=== PATIENT | female | born 1955 | race Caucasian/White ===

== ENCOUNTER → 2016-05-11 | Outpatient (CLI) | payer MEDICARE, OTHER ==
--- NOTE | 2016-05-11 12:28 | US ---
EXAMINATION TYPE: US axilla extremity RT DATE OF EXAM: 05/11/2016 12:03 PM COMPARISON: NONE CLINICAL HISTORY: R59.1 Lymphadenopathy,. Rt lump for about a week pt also had mammogram today IMPRESSION: rt axilla palpable vascular 1.9 x 2.1 x 1.6 cm lymph node, smaller node superior to palp able are 0.9 x 0.6 x 1.0 cm IMPRESSION: Right axillary adenopathy.
--- NOTE | 2016-05-15 09:13 | MM ---
Reason for exam: screening (asymptomatic). Last mammogram was performed 1 year and 2 months ago. History: Patient is postmenopausal. Benign excisional biopsy of the left breast, 2006. Physical Findings: A clinical breast exam by your physician is recommended on an annual basis and results should be correlated with mammographic findings. MG 3D Screening Mammo W/Cad Bilateral CC and MLO view(s) were taken. Prior study comparison: March 18, 2015, mammogram, performed at [facility]. The breast tissue is heterogeneously dense. This may lower the sensitivity of mammography. Focal asymmetry 8 o'clock right breast middle depth appears more defined. This may represent summation shadow but warrants further evaluation. ASSESSMENT: Incomplete: need additional imaging evaluation, BI-RAD 0 RECOMMENDATION: Special view mammogram of the right breast. If lesion persists on supplemental views, image directed ultrasound is recommended. [facility] will attempt to contact patient to return for supplemental views and ultrasound if indicated.
== END | disposition home or self-care (01) ==
LOC: RADMAMWWP 11:22
PROVIDERS: ATTEND Surgery
DX: Z12.31 Encounter for screening mammogram for malignant neoplasm of breast (principal); R59.0 Localized enlarged lymph nodes
CPT/HCPCS: 77063; 76882; G0202

== ENCOUNTER → 2016-05-18 | Outpatient (CLI) | payer MEDICARE, OTHER ==
--- NOTE | 2016-05-19 08:47 | MM ---
Reason for exam: additional evaluation requested from abnormal screening. Last mammogram was performed less than 1 month ago. History: Patient is postmenopausal. Benign excisional biopsy of the left breast, 2006. Physical Findings: Nurse Summary: 2cm lump right axilla, round, movable (nurse mm). MG 3D Work Up W/Cad RT Spot compression CC, spot compression MLO, and LM view(s) were taken of the right breast. Prior study comparison: May 11, 2016, bilateral MG 3d screening mammo w/cad. March 18, 2015, mammogram, performed at [facility]. The breast tissue is heterogeneously dense. This may lower the sensitivity of mammography. The questioned focal asymmetry does not persist on the spot MLO or true lateral view. While a density persists on the CC view, no underlying mass or architectural distortion seen on tomosynthesis images. Given the axillary adenopathy ultrasound is recommended. These results were verbally communicated with the patient and result sheet given to the patient on 05/18/16. ASSESSMENT: Incomplete: need additional imaging evaluation, BI-RAD 0 RECOMMENDATION: Ultrasound of the right breast. (6-12:00)
--- NOTE | 2016-05-19 08:50 | USB ---
Reason for exam: additional evaluation requested from abnormal screening. History: Patient is postmenopausal. Benign excisional biopsy of the left breast, 2006. US Breast Workup Limited RT Right breast ultrasound demonstrates ductal ectasia at the nipple and a 0.4 x 0.3 x 0.3cm lesion too small to characterize at 8 o'clock. However, because of the patient's enlarged axillary lymph node scheduled for surgical excision, core needle biopsy can be performed. These results were verbally communicated with the patient and result sheet given to the patient on 05/18/16. ASSESSMENT: Suspicious, BI-RAD 4 RECOMMENDATION: Ultrasound core biopsy of the right breast. (small 8:00 lesion) Called with mammographic findings and has scheduled an appointment for the patient for 05/23/16 at 1:[address] Eric. PRELIMINARY REPORT CALLED AND FAXED TO DR. ERIC ON 05/19/16 AT 300/TMP.
== END | disposition home or self-care (01) ==
LOC: RADMAMWWP 14:41
PROVIDERS: ATTEND Surgery
DX: R92.8 Other abnormal and inconclusive findings on diagnostic imaging of breast (principal)
CPT/HCPCS: 76642; G0206; G0279

== ENCOUNTER → 2016-06-06 | Day surgery (SDC) | payer MEDICARE, OTHER ==
[~2016-06-06] MED LIST: BACITRACIN OINT 1 EACH PACKET TOPICAL ONE; LIDOCAINE 1% INJ 10MG/ML (20 ML MDV) ONE; SODIUM BICARB 4% 5 ML VIAL (0.48 MEQ/ML) ONE
--- NOTE | 2016-06-06 12:53 | USB ---
EXAMINATION TYPE: US biopsy breast VAD RT, MG diagnostic mammo RT wo CAD DATE OF EXAM: 06/06/2016 12:33 PM CLINICAL HISTORY: R92.8 ABN MAMMO. TECHNIQUE: Ultrasound guided core biopsy of right 8:00 breast. COMPARISON: NONE FINDINGS: The procedure of ultrasound guided core biopsy was explained to the patient. Benefits, alternatives, and risks were discussed. An informed consent was then obtained. The patient was placed in supine positioning for imaging and for the procedure. The overlying skin was prepped and draped in usual sterile fashion. Lidocaine buffered with bicarbonate was used as anesthetic into the skin and subcutaneous tissue up to area of concern in the right 8:00 breast. A barbie was made with surgical scalpel. Under ultrasound guidance, a 12-gauge vacuum assisted biopsy gun device was used to obtain 3 core samples. Following this, a biopsy clip was left in lesion. Verification mammogram demonstrates appropriate deployment. The patient tolerated the procedure well without any immediate complication. The patient was kept in the radiology department for short stay after the procedure and then discharged home in stable condition. IMPRESSION: Successful, uncomplicated ultrasound guided core biopsy of area of concern in the right 8:00 breast, full pathology results to follow. Pathology Results: Benign BREAST, RIGHT, CORE BIOPSY: FIBROCYSTIC CHANGES INCLUDING FIBROSIS, CYSTS AND APOCRINE METAPLASIA. Recommendation Follow up ultrasound of the right breast in 6 months. CON
== END | disposition home or self-care (01) ==
LOC: RADUSWWP 11:34
PROVIDERS: ATTEND Surgery
DX: N60.31 Fibrosclerosis of right breast (principal); N60.01 Solitary cyst of right breast; N60.81 Other benign mammary dysplasias of right breast
CPT/HCPCS: 19083; 88305; G0206; A4648; J2001

== ENCOUNTER 2016-06-16 12:17 | Day surgery (SDC) | payer MEDICARE, OTHER ==
[2016-06-14 15:59] VITALS: BMI 19.2
[~2016-06-16 12:17] MED LIST changes: -BACITRACIN OINT 1 EACH PACKET TOPICAL ONE; +DEXAMETHASONE SOD PHOSPHATE 10 MG/ML 1 ML VIAL IV ONE; +HEPARIN SODIUM,PORCINE 5,000 UNIT/ML 1 ML VIAL SQ ONE; +HYDROmorphone 1 MG/ML 1 ML SYRINGE IVP PRN; +LACTATED RINGERS 1,000 ML IV SCH; -LIDOCAINE 1% INJ 10MG/ML (20 ML MDV) ONE; +MIDAZOLAM 2 MG/2 ML VIAL IV PRN; +ONDANSETRON 4 MG/2 ML VIAL IVP ONE; +Pre Op ABX Message 1 EACH MISC MISCELLANE ONE; +SCOPOLAMINE 1.5MG/72HR PATCH TRANSDERM ONE; -SODIUM BICARB 4% 5 ML VIAL (0.48 MEQ/ML) ONE
[2016-06-16] MEDS ORDERED: LIDOCAINE 1% 20 ML VIAL (10MG/ML) FOR IV START INTRADERMA ONE (12:39)
[2016-06-16] MEDS ORDERED: ATENOLOL 25 MG TAB PO STA (12:43)
--- NOTE | 2016-06-16 13:27 | P.GSHP ---
History of Present Illness H&P Date: 06/16/16 Chief Complaint: Right axillary lymphadenopathy This is a 60-year-old female who's had a right x-ray mass. Her recent ultrasound shows evidence of right I's lymphadenopathy. Patient presents today for excision of right axillary lymph node. - Constitutional Constitutional: Reports as per HPI Past Medical History Past Medical History: Coronary Artery Disease (CAD), COPD, Hyperlipidemia, Myocardial Infarction ([place]), Pneumonia Additional Past Medical History / Comment(s): aneurysm, Last Myocardial Infarction Date:: 2004 History of Any Multi-Drug Resistant Organisms: None Reported Past Surgical History: Breast Surgery, Heart Catheterization With Stent Additional Past Surgical History / Comment(s): "fluid drained from left breast" , surgery rt kidney to remove kidney stone , geovanni shoulder roator cuff Past Anesthesia/Blood Transfusion Reactions: No Reported Reaction Date of Last Stent Placement:: 2004 Past Psychological History: No Psychological Hx Reported Smoking Status: Current every day smoker Past Alcohol Use History: None Reported Additional Past Alcohol Use History / Comment(s): smokes < 1 PPD for past 50 yrs Past Drug Use History: None Reported - Past Family History Sister(s) Family Medical History: Cancer Father Family Medical History: Cancer Mother Family Medical History: Cancer Medications and Allergies Home Medications Medication Instructions Recorded Confirmed Type Albuterol Nebulized [Ventolin 2.5 mg INHALATION DIRECTED PRN 10/21/13 History Nebulized] Atenolol [Tenormin] 25 mg PO DAILY 10/21/13 06/16/16 History Tiotropium Rose [Spiriva] 1 puff IH DAILY 10/21/13 06/14/16 History Albuterol Inhaler [Ventolin Hfa 1 - 2 puff INHALATION DIRECTED 06/14/1606/16 History Inhaler] PRN Aspirin 325 mg PO DAILY 06/14/16 06/14/16 History Atorvastatin [Lipitor] 40 mg PO DAILY 06/14/16 06/16/16 History Budesonide-Formot 160-4.5 Mcg 1 puff INHALATION BID 06/14/16 06/14/16 History [Symbicort 160-4.5 Mcg Inhaler] Ergocalciferol [Vitamin D2] 50,000 unit PO Q7D 06/14/16 06/16/16 History Pantoprazole Sodium 20 mg PO DAILY 06/14/16 06/14/16 History Pregabalin [Lyrica] 75 mg PO DAILY 06/14/16 06/14/16 History Allergies Allergy/AdvReac Type Severity Reaction Status Date / Time No Known Allergies Allergy Verified 06/16/16 12:34 Surgical - Exam Vital Signs Temp Pulse Resp BP Pulse Ox 977.6 F H 75 16 138/69 95 06/16/16 12:37 06/16/16 12:37 06/16/16 12:37 06/16/16 12:37 06/16/16 12:37 - General well developed, no distress - Eyes PERRL - ENT normal pinna - Neck no masses - Respiratory normal expansion - Cardiovascular Rhythm: regular - Abdomen Abdomen: soft, non tender 3 cm mass in right examined. Assessment and Plan Plan: Right axillary lymphadenopathy. We'll perform excisional biopsy.
[2016-06-16] MEDS ORDERED: BUPIVACAIN-EPI 0.25%-1:200,000 30 ML VIAL SQ ONE ×2 (13:48)
[2016-06-16] MEDS ORDERED: LIDOCAINE 1% INJ 10MG/ML (20 ML MDV) ONE (13:49)
[2016-06-16] MEDS ORDERED: MIDAZOLAM 2 MG/2 ML VIAL ONE (13:49)
[2016-06-16] MEDS ORDERED: ePHEDrine 50 MG/ML 1 ML AMP ONE (13:49)
[2016-06-16] MEDS ORDERED: PROPOFOL 10 MG/ML 20 ML VIAL IV ONE (13:49)
--- NOTE | 2016-06-16 14:29 | P.OP ---
Date of Procedure: 06/16/16 Preoperative Diagnosis: Right axillary lymphadenopathy Postoperative Diagnosis: Right axillary lymphadenopathy Procedure(s) Performed: Excision of right axillary lymph node Anesthesia: KELSEY Surgeon: Tyree Eric Estimated Blood Loss (ml): 5 Pathology: other (Right axillary lymph node) Condition: stable Disposition: PACU Description of Procedure: Patient's placed on the operating table in the supine position. She received a general anesthetic. Her right axilla was prepped and draped usual sterile fashion. Mask be palpated through the nasal. A skin incision was made over the mass. And then using blunt and sharp dissection with cautery and the Harmonic scissors the lymph node was exposed. The lymph node was dissected with the Harmonic scissors and sent to pathology. The lymph node measured approximately 4 cm diameter. The wound was inspected for hemostasis. Small bleeding points were coagulated with electrocautery. A LISA drains placed through separate stab incision and brought out through the chest lateral chest wall. The skin was closed interrupted 3-0 Monocryl suture. Dermabond was applied. Patient sent to recovery room stable condition.
[2016-06-16 14:44] VITALS: TEMP 97.2
[2016-06-16 14:48] VITALS: RESP 16
[2016-06-16] MEDS ORDERED: LACTATED RINGERS 1,000 ML IV ONE (15:01)
[2016-06-16 15:49] VITALS: BP 111/61; PULSE 67
== END 2016-06-16 16:19 | disposition home or self-care (01) ==
LOC: OR 12:17
PROVIDERS: ATTEND Surgery
DX: C77.3 Secondary and unspecified malignant neoplasm of axilla and upper limb lymph nodes (principal); C80.1 Malignant (primary) neoplasm, unspecified; I25.10 Atherosclerotic heart disease of native coronary artery without angina pectoris; J45.909 Unspecified asthma, uncomplicated; J44.9 Chronic obstructive pulmonary disease, unspecified; I71.2 Thoracic aortic aneurysm, without rupture; E78.5 Hyperlipidemia, unspecified; I25.2 Old myocardial infarction; F17.200 Nicotine dependence, unspecified, uncomplicated; Z79.51 Long term (current) use of inhaled steroids; Z79.82 Long term (current) use of aspirin; Z79.899 Other long term (current) drug therapy; Z95.5 Presence of coronary angioplasty implant and graft; Z80.9 Family history of malignant neoplasm, unspecified
CPT/HCPCS: 38500; 88342; 88307; 88341; J2250; J1644; J1100; J2405; J2001; J1170; J2704

== ENCOUNTER → 2016-06-26 | Outpatient (CLI) | payer MEDICARE, OTHER ==
--- NOTE | 2016-06-26 14:09 | CT ---
EXAMINATION TYPE: CT ChestAbdPelvis w con DATE OF EXAM: 06/26/2016 1:57 PM COMPARISON: NONE HISTORY: lymphoma CT DLP: 707.5 mGycm CONTRAST: CT scan of the chest, abdomen and pelvis is performed with Oral Contrast and with IV Contrast, patien t injected with 100 mL of Omnipaque 300. CT Chest: LUNGS: The lungs are clear and free of infiltrate or atelectasis. No pulmonary nodule or mass is det ected. No pleural effusion or CT evidence of interstitial lung disease. MEDIASTINUM: Thoracic aorta is of normal caliber. The heart is not enlarged. No evidence for media stinal mass or adenopathy. Several calcified mediastinal lymph nodes. HILAR STRUCTURES: No evidence for mass. No hilar adenopathy is appreciated. OTHER: There is massive partially imaged right axillary adenopathy measuring at least 10.7 cm in cran iocaudal dimension and 7.1 cm AP dimension. No axillary or supraclavicular lymph nodes greater than [address] ABDOMEN AND PELVIS FINDINGS: LIVER/GB: No calcified gallstones. Several scattered hepatic cystic lesions measuring up to 1.6 cm and 1.8 cm. Biliary tree is of normal caliber. PANCREAS: No inflammation. No distinct mass. SPLEEN: No splenic enlargement. No lesion seen. ADRENALS: 1 cm right adrenal adenoma. KIDNEYS/BLADDER: No hydronephrosis. No nephrolithiasis. Renal cystic changes upper pole right kidne y measuring up to 3.3 cm. Focal parenchymal calcification and cortical thinning suggesting remote ins ult. Additional nonobstructing right-sided nephrolithiasis. Left renal cyst midpole measures 1.6 cm g reatest dimension. No solid renal lesions appreciated at this time. BOWEL: Normal appendix. Normal b owel caliber. No inflammation. Left renal vein is retroaortic in position. GENITAL ORGANS: Soft tissue mass adjacent to the uterus on the right measures 3.6 x 2.5 cm and may re flect subserosal leiomyoma versus ovarian lesion although a normal right ovary is present. Consider u ltrasound correlation. LYMPH NODES: No greater than 1cm abdominal or pelvic lymph nodes are appreciated. AORTA: No significant abnormality. OSSEOUS STRUCTURES: No significant abnormality is seen. OTHER: No significant additional abnormality is seen. IMPRESSION: 1. Partially imaged right axillary adenopathy. 2. No additional adenopathy appreciated. 3. Renal cystic changes and focal areas of right renal parenchymal insult. Nonobstructing right-sided nephrolithiasis. 4. Hepatic cysts. 5. Small right adrenal adenoma measuring 1 cm. #6 subserosal leiomyoma versus adnexal lesion. Conside r ultrasound correlation.
== END | disposition home or self-care (01) ==
LOC: RADCTMAIN 13:27
PROVIDERS: ATTEND Surgery
DX: R59.9 Enlarged lymph nodes, unspecified (principal); N20.0 Calculus of kidney; K76.89 Other specified diseases of liver; D35.01 Benign neoplasm of right adrenal gland
CPT/HCPCS: 71260; 74177; Q9967

== ENCOUNTER → 2016-07-11 | Outpatient (CLI) | payer MEDICARE, OTHER ==
--- NOTE | 2016-07-12 11:38 | ECHOF ---
Referral Reason:C50.919 Z01.810 Breast CA, Pre Chemo MEASUREMENTS -------- HEIGHT: 156.2 cm WEIGHT: 64.9 kg BP: 120/80 RVIDd: 3.3 cm (< 3.3) IVSd: 1.1 cm (0.6 - 1.1) LVIDd: 4.6 cm (3.9 - 5.3) LVPWd: 1.0 cm (0.6 - 1.1) IVSs: 1.5 cm LVIDs: 3.8 cm LVPWs: 1.8 cm LA Diam: 2.9 cm (2.7 - 3.8) LAESV Index (A-L): 18.51 ml/m Ao Diam: 3.4 cm (2.0 - 3.7) AV Cusp: 2.4 cm (1.5 - 2.6) MV EXCURSION: 17.701 mm (> 18.000) MV EF SLOPE: 45 mm/s (70 - 150) EPSS: 0.9 cm MV E Rl: 0.73 m/s MV DecT: 228 ms MV A Rl: 0.89 m/s MV E/A Ratio: 0.82 RAP: 5.00 mmHg RVSP: 40.01 mmHg FINDINGS -------- Sinus rhythm. This was a technically adequate study. The left ventricular size is normal. There is borderline concentric left ventricular hypertrophy. There is mild global hypokinesis of LV . Overall left ventricular systolic function is mildly impaired with, an EF between 45 - 50 %. The right ventricle is mildly enlarged. Normal LA size by volume 22+/-6 ml/m2. The right atrium is normal in size. 1.5mg of Definity was utilized for enhancement of images The aortic valve is trileaflet and appears structurally normal. The mitral valve is normal. The tricuspid valve appears structurally normal. Mild tricuspid regurgitation present. There is mild pulmonary hypertension. The right ventricular systolic pressure, as measured by Doppler, is 40.01mmHg. The pulmonic valve was not well visualized. There is no pulmonic regurgitation present. The aortic root size is normal. Normal inferior vena cava with normal inspiratory collapse consistent with estimated right atrial pressure of 5 mmHg. There is no pericardial effusion. CONCLUSIONS -------- 1. Sinus rhythm. 2. The mitral valve is normal. 3. Mild tricuspid regurgitation present. 4. There is mild pulmonary hypertension. 5. The right ventricular systolic pressure, as measured by Doppler, is 40.01mmHg. 6. The pulmonic valve was not well visualized. 7. There is no pulmonic regurgitation present. 8. The aortic root size is normal. 9. Normal inferior vena cava with normal inspiratory collapse consistent with estimated right atrial pressure of 5 mmHg. 10. There is no pericardial effusion. 11. This was a technically adequate study. 12. There is borderline concentric left ventricular hypertrophy. 13. There is mild global hypokinesis of LV . 14. Overall left ventricular systolic function is mildly impaired with, an EF between 45 - 50 %. 15. The right ventricle is mildly enlarged. 16. Normal LA size by volume 22+/-6 ml/m2. 17. 1.5mg of Definity was utilized for enhancement of images 18. The aortic valve is trileaflet and appears structurally normal. MERCHANDISE STOCKER: Mariah Molina RDCS
== END | disposition home or self-care (01) ==
LOC: RADECHMAIN 12:52
PROVIDERS: ATTEND Internal Medicine Hematology & Oncology
DX: Z01.818 Encounter for other preprocedural examination (principal); C50.919 Malignant neoplasm of unspecified site of unspecified female breast; I07.1 Rheumatic tricuspid insufficiency; I27.2 Other secondary pulmonary hypertension; I51.7 Cardiomegaly
CPT/HCPCS: C8929; Q9957; 93306

== ENCOUNTER → 2016-07-12 | Outpatient (CLI) | payer MEDICARE, OTHER ==
--- NOTE | 2016-07-14 09:36 | BMR ---
EXAMINATION TYPE: MR breast BILAT wo/w con DATE OF EXAM: 07/12/2016 1:36 PM COMPARISON: CT chest abdomen pelvis 26 June 2016, mammogram May 2016, 2016 diagnostic ultrasound and mammogram HISTORY: Breast CA, lymphoma TECHNIQUE: A series of fat and water weighted images in the long and short axis views of both breasts are obtained in conjunction with dynamic contrast MRI with subtraction technique. The patient was i njected with 15 mL intravenous MultiHance gadolinium contrast. Three-dimensional and additional pos tprocessing imaging is created on independent workstation and reviewed during official interpretation of this study. FINDINGS: Scattered fibroglandular elements are present within both breasts. The right axilla shows abnormal appearance compatible with postop change, underlying soft tissue mass possibly tax representative of patient's known lymphoma. No additional adenopathy is evident. Benign-harshil earing lymph nodes are present additionally within both axilla. No suspicious mass like enhancement is present within either breast. IMPRESSION: Abnormal signal within the right axilla, findings compatible with postbiopsy change. No suspicious ma ss like enhancement within the breasts bilaterally. right breast: BI-RADS 6, known cancer Left breast: BI-RADS 1 negative
== END | disposition home or self-care (01) ==
LOC: RADMRIMAIN 11:57
PROVIDERS: ATTEND Internal Medicine Hematology & Oncology
DX: C50.919 Malignant neoplasm of unspecified site of unspecified female breast (principal); R93.8 Abnormal findings on diagnostic imaging of other specified body structures
CPT/HCPCS: 0159T; C8908; A9577; 77059

== ENCOUNTER 2016-07-14 06:00 | Day surgery (SDC) | payer MEDICARE, OTHER ==
[2016-07-12 14:47] VITALS: BMI 26.2
[~2016-07-14 06:00] MED LIST changes: -Pre Op ABX Message 1 EACH MISC MISCELLANE ONE; +ceFAZolin 2 GM in SODIUM CHLORIDE 0.9% 100 ML IVPB ONE
[2016-07-14 06:21] VITALS: RESP 16; TEMP 98
[2016-07-14] MEDS ORDERED: LIDOCAINE 1% 20 ML VIAL (10MG/ML) FOR IV START INTRADERMA ONE (06:34)
[2016-07-14] MEDS ORDERED: HEPARIN SODIUM,PORCINE 100 UNIT/ML 5 ML VIAL IV ONE (07:20)
[2016-07-14] MEDS ORDERED: BUPIVACAIN-EPI 0.25%-1:200,000 30 ML VIAL SQ ONE (07:21)
[2016-07-14] MEDS ORDERED: IOHEXOL 180 MG/ML 1 ML ML MISCELLANE ONE (07:21)
--- NOTE | 2016-07-14 07:50 | P.GSHP ---
History of Present Illness H&P Date: 07/14/16 Chief Complaint: Right This is a 61-year-old female who presents today for insertion of Port-A-Cath. 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 - Constitutional Constitutional: Reports as per HPI Past Medical History Past Medical History: Coronary Artery Disease (CAD), COPD, Hyperlipidemia, Myocardial Infarction ([place]), Pneumonia Additional Past Medical History / Comment(s): aneurysm, R axillary lymphadenopathy. Last Myocardial Infarction Date:: 2004 History of Any Multi-Drug Resistant Organisms: None Reported Past Surgical History: Breast Surgery, Heart Catheterization With Stent Additional Past Surgical History / Comment(s): "fluid drained from left breast" , surgery rt kidney to remove kidney stone , geovanni shoulder roator cuff, surgery beginning of june for lymph node L side. Past Anesthesia/Blood Transfusion Reactions: No Reported Reaction Date of Last Stent Placement:: 2004 Past Psychological History: No Psychological Hx Reported Smoking Status: Current every day smoker Past Alcohol Use History: None Reported Additional Past Alcohol Use History / Comment(s): smokes < 1 PPD for past 50 yrs Past Drug Use History: None Reported - Past Family History Sister(s) Family Medical History: Cancer Father Family Medical History: Cancer Mother Family Medical History: Cancer Medications and Allergies Home Medications Medication Instructions Recorded Confirmed Type Albuterol Nebulized [Ventolin 2.5 mg INHALATION DIRECTED PRN 10/21/13 History Nebulized] Atenolol [Tenormin] 25 mg PO DAILY 10/21/13 07/14/16 History Tiotropium Franklin [Spiriva] 1 puff IH DAILY 10/21/13 07/14/16 History Albuterol Inhaler [Ventolin Hfa 1 - 2 puff INHALATION DIRECTED 06/14/1607/14 History Inhaler] PRN Aspirin 325 mg PO DAILY 06/14/16 07/14/16 History Atorvastatin [Lipitor] 40 mg PO DAILY 06/14/16 07/14/16 History Budesonide-Formot 160-4.5 Mcg 1 puff INHALATION BID 06/14/16 07/14/16 History [Symbicort 160-4.5 Mcg Inhaler] Ergocalciferol [Vitamin D2] 50,000 unit PO Q7D 06/14/16 07/14/16 History Pantoprazole Sodium 20 mg PO DAILY 06/14/16 07/14/16 History Pregabalin [Lyrica] 75 mg PO DAILY 06/14/16 07/14/16 History Allergies Allergy/AdvReac Type Severity Reaction Status Date / Time No Known Allergies Allergy Verified 07/14/16 06:21 Surgical - Exam Vital Signs Temp Pulse Resp BP Pulse Ox 98.0 F 68 16 122/69 94 L 07/14/16 06:20 07/14/16 06:20 07/14/16 06:20 07/14/16 06:20 07/14/16 06:20 - General well developed, no distress - Eyes PERRL - ENT normal pinna - Neck no masses - Respiratory normal expansion - Cardiovascular Rhythm: regular - Abdomen Abdomen: soft, non tender Assessment and Plan Plan: Right axillary squamous cell carcinoma. We'll perform Port-A-Cath insertion.
[2016-07-14] MEDS ORDERED: LIDOCAINE 1% INJ 10MG/ML (20 ML MDV) ONE (07:53)
[2016-07-14] MEDS ORDERED: MIDAZOLAM 2 MG/2 ML VIAL ONE (07:53)
[2016-07-14] MEDS ORDERED: GLYCOPYRROLATE 0.2 MG/ML 2 ML VIAL ONE (07:53)
[2016-07-14] MEDS ORDERED: fentaNYL (PF) 50 MCG/ML 2 ML AMP ONE (07:53)
[2016-07-14] MEDS ORDERED: PROPOFOL 10 MG/ML 20 ML VIAL IV ONE (07:53)
[2016-07-14] MEDS ORDERED: KETAMINE 10 MG/ML 20 ML VIAL ONE (07:53)
--- NOTE | 2016-07-14 08:28 | P.OP ---
Date of Procedure: 07/14/16 Preoperative Diagnosis: Metastatic scope was so right axilla Postoperative Diagnosis: Same Procedure(s) Performed: Left subclavian Port-A-Cath insertion Anesthesia: KELSEY Surgeon: Tyree Eric Estimated Blood Loss (ml): 5 Pathology: none sent Condition: stable Disposition: PACU Description of Procedure: PROCEDURE: The patient was placed on the operating table in the supine position. She received MAC anesthetic. The left chest was prepped and draped in the usual sterile fashion. The skin underneath the right clavicle was anesthetized with 1% Xylocaine and using Seldinger technique, the right subclavian vein was cannulized. The wire was placed through the needle and positioned under fluoroscopy. Next, the needle was removed and the port site was anesthetized with 1% Xylocaine. Skin was incised with #15 blade and port pocket was made using blunt and sharp dissection. Following this the catheter was attached to the sport and the port was flushed. The port was positioned into the pocket site and was secured with 3-0 Vicryl suture. The catheter was then brought out through the wire site and then the dilator sheath was placed over the wire and the dilator and the wire were removed. The catheter was placed through the sheath and the sheath was removed. The port was flushed with hep-lock solution. Skin was closed with interrupted 3-0 Vicryl sutures. Steri-Strips were applied. The patient tolerated the procedure well. The patient was sent to recovery room for chest x-ray after the procedure.
[2016-07-14 09:24] VITALS: BP 105/71; PULSE 82
--- NOTE | 2016-07-14 09:47 | XR ---
EXAMINATION TYPE: XR chest 1V DATE OF EXAM: 07/14/2016 9:41 AM HISTORY: Line placement. REFERENCE: Previous study dated 03/21/2012. FINDINGS: The lungs are clear. The heart is minimally prominent. Pleural spaces are clear. IMPRESSION: MILD CARDIOMEGALY.
--- NOTE | 2016-07-14 10:03 | FL ---
FLUOROSCOPY 7 seconds of fluoroscopy time were utilized during Port-A-Cath insertion. 1 images document the proce dure.
== END 2016-07-14 10:00 | disposition home or self-care (01) ==
LOC: OR 06:00
PROVIDERS: ATTEND Surgery
DX: Z45.2 Encounter for adjustment and management of vascular access device (principal); C50.611 Malignant neoplasm of axillary tail of right female breast; F17.200 Nicotine dependence, unspecified, uncomplicated; I25.10 Atherosclerotic heart disease of native coronary artery without angina pectoris; Z95.5 Presence of coronary angioplasty implant and graft; I10 Essential (primary) hypertension; E78.5 Hyperlipidemia, unspecified; Z80.9 Family history of malignant neoplasm, unspecified; I25.2 Old myocardial infarction; Z79.82 Long term (current) use of aspirin; Z79.51 Long term (current) use of inhaled steroids; Z79.899 Other long term (current) drug therapy
CPT/HCPCS: 36571; 77001; 71010; C1788; J2250; J1644; J1642; J1100; Q9965; J0690; J2405; J2001; J3010; J2704

== ENCOUNTER → 2016-09-06 | Outpatient (CLI) | payer MEDICARE, OTHER ==
--- NOTE | 2016-09-12 14:18 | ECHOF ---
Referral Reason:C50.611 breast ca Z01.818 herceptin MEASUREMENTS -------- HEIGHT: 152.4 cm WEIGHT: 66.2 kg BP: 119/86 RVIDd: 2.4 cm (< 3.3) IVSd: 1.1 cm (0.6 - 1.1) LVIDd: 4.7 cm (3.9 - 5.3) LVPWd: 1.3 cm (0.6 - 1.1) IVSs: 1.5 cm LVIDs: 3.8 cm LVPWs: 1.1 cm LAESV Index (A-L): 22.83 ml/m Ao Diam: 3.3 cm (2.0 - 3.7) AV Cusp: 1.8 cm (1.5 - 2.6) LA Diam: 3.2 cm (2.7 - 3.8) MV EXCURSION: 19.436 mm (> 18.000) MV EF SLOPE: 74 mm/s (70 - 150) EPSS: 0.4 cm MV E Rl: 0.48 m/s MV DecT: 293 ms MV A Rl: 0.80 m/s MV E/A Ratio: 0.60 RAP: 5.00 mmHg RVSP: 34.14 mmHg FINDINGS -------- Sinus rhythm. This was a technically adequate study. There is borderline concentric left ventricular hypertrophy. Overall left ventricular systolic function is mild-moderately impaired with, an EF between 40 - 45 %. The right ventricle is normal in size. The right atrial size is normal. Mild mitral annular calcification present. Mild mitral regurgitation is present. Mild tricuspid regurgitation present. There is no evidence of pulmonary hypertension. The right ventricular systolic pressure, as measured by Doppler, is 34.14mmHg. There is no pulmonic regurgitation present. The aortic root size is normal. There is no pericardial effusion. CONCLUSIONS -------- 1. There is borderline concentric left ventricular hypertrophy. 2. Overall left ventricular systolic function is mild-moderately impaired with, an EF between 40 - 45 %. 3. Mild mitral annular calcification present. 4. Mild mitral regurgitation is present. 5. Mild tricuspid regurgitation present. 6. There is no evidence of pulmonary hypertension. 7. The right ventricular systolic pressure, as measured by Doppler, is 34.14mmHg. 8. There is no pericardial effusion. INCISING MACHINE OPERATOR: Karo Martinez RDCS
== END | disposition home or self-care (01) ==
LOC: RADECHMAIN 07:56
PROVIDERS: ATTEND Internal Medicine Hematology & Oncology
DX: Z01.810 Encounter for preprocedural cardiovascular examination (principal); I08.1 Rheumatic disorders of both mitral and tricuspid valves; C50.611 Malignant neoplasm of axillary tail of right female breast
CPT/HCPCS: 93306

== ENCOUNTER → 2016-11-17 | Outpatient (CLI) | payer MEDICARE, OTHER ==
--- NOTE | 2016-11-17 17:37 | ECHOF ---
Referral Reason:Z01.818pre op exam C50.61 breast ca MEASUREMENTS -------- HEIGHT: 309.9 cm WEIGHT: 22.7 kg BP: 117/84 RVIDd: 3.3 cm (< 3.3) IVSd: 1.0 cm (0.6 - 1.1) LVIDd: 4.9 cm (3.9 - 5.3) LVPWd: 1.0 cm (0.6 - 1.1) IVSs: 1.3 cm LVIDs: 3.7 cm LVPWs: 1.1 cm LAESV Index (A-L): 21.13 ml/m Ao Diam: 3.6 cm (2.0 - 3.7) AV Cusp: 1.8 cm (1.5 - 2.6) LA Diam: 3.4 cm (2.7 - 3.8) MV EXCURSION: 17.007 mm (> 18.000) MV EF SLOPE: 104 mm/s (70 - 150) EPSS: 1.0 cm MV E Rl: 0.44 m/s MV DecT: 199 ms MV A Rl: 0.69 m/s MV E/A Ratio: 0.64 RAP: 5.00 mmHg RVSP: 40.39 mmHg FINDINGS -------- Undetermined rhythm. This was a technically adequate study. There is mild concentric left ventricular hypertrophy. Overall left ventricular systolic function is mild-moderately impaired with, an EF between 40 - 45 %. The right ventricle is normal in size. The right atrial size is normal. There is mild aortic valve sclerosis. There is no evidence of aortic regurgitation. Mild mitral annular calcification present. Mild mitral regurgitation is present. Mild tricuspid regurgitation present. There is mild pulmonary hypertension. The right ventricular systolic pressure, as measured by Doppler, is 40.39mmHg. Trace/mild (physiologic) pulmonic regurgitation. The aortic root size is normal. There is no pericardial effusion. CONCLUSIONS -------- 1. There is mild concentric left ventricular hypertrophy. 2. The aortic root size is normal. 3. There is no pericardial effusion. 4. Overall left ventricular systolic function is mild-moderately impaired with, an EF between 40 - 45 %. 5. There is mild aortic valve sclerosis. 6. Mild mitral annular calcification present. 7. Mild mitral regurgitation is present. 8. Mild tricuspid regurgitation present. 9. There is mild pulmonary hypertension. 10. The right ventricular systolic pressure, as measured by Doppler, is 40.39mmHg. 11. Trace/mild (physiologic) pulmonic regurgitation. GO GO DANCER: Karo Martinez RDCS
== END | disposition home or self-care (01) ==
LOC: RADECHMAIN 07:53
PROVIDERS: ATTEND Internal Medicine Hematology & Oncology
DX: C50.611 Malignant neoplasm of axillary tail of right female breast (principal); I08.3 Combined rheumatic disorders of mitral, aortic and tricuspid valves
CPT/HCPCS: 93306

== ENCOUNTER → 2016-11-23 | Outpatient (CLI) | payer MEDICARE, OTHER ==
[2016-11-23 16:19] LABS: Anisocytosis Slight; CH 29.1; HCT 41.9 % (34.0-46.0); HDW 2.66; HGB 13.7 gm/dL (11.4-16.0); Hypochromasia Slight; MCH 30.9 pg (25.0-35.0); MCHC 32.6 g/dL (31.0-37.0); MCV 94.7 fL (80.0-100.0); Macrocytosis Slight; RBC 4.43 m/uL (3.80-5.40); RDW 18.8 % (11.5-15.5); WBC 9.3 k/uL (3.8-10.6)
[2016-11-23 16:24] LABS: Anion Gap 9 mmol/L; Blood Urea Nitrogen 11 mg/dL (7-17); Carbon Dioxide 27 mmol/L (22-30); Chloride 106 mmol/L (98-107); Non-African American GFR(MDRD) >60 (>60 ml/min/1.73 sqM); Potassium 4.2 mmol/L (3.5-5.1); Sodium 142 mmol/L (137-145)
== END | disposition home or self-care (01) ==
LOC: LABPAT 16:02
PROVIDERS: ATTEND Internal Medicine Interventional Cardiology
DX: Z01.812 Encounter for preprocedural laboratory examination (principal); R94.30 Abnormal result of cardiovascular function study, unspecified
CPT/HCPCS: 80051; 82565; 84520; 85027

== ENCOUNTER 2016-11-24 09:57 | Day surgery (SDC) | payer MEDICARE, OTHER ==
[~2016-11-24 09:57] MED LIST changes: +ALPRAZolam 0.25 MG TAB PO PRN; +ALPRAZolam 0.5 MG TAB PO PRN; +ASPIRIN 325 MG TAB PO STA; +ATORVASTATIN 80 MG TAB PO STA; -DEXAMETHASONE SOD PHOSPHATE 10 MG/ML 1 ML VIAL IV ONE; -HEPARIN SODIUM,PORCINE 5,000 UNIT/ML 1 ML VIAL SQ ONE; -HYDROmorphone 1 MG/ML 1 ML SYRINGE IVP PRN; -LACTATED RINGERS 1,000 ML IV SCH; -MIDAZOLAM 2 MG/2 ML VIAL IV PRN; +NITROGLYCERIN SL TABS 0.4 MG TAB SUBLINGUAL PRN; -ONDANSETRON 4 MG/2 ML VIAL IVP ONE; -SCOPOLAMINE 1.5MG/72HR PATCH TRANSDERM ONE; +SODIUM CHLORIDE 0.9% 1,000 ML in EMPTY BAG 1 BAG IV ONE; -ceFAZolin 2 GM in SODIUM CHLORIDE 0.9% 100 ML IVPB ONE
[2016-11-24 10:26] VITALS: TEMP 98.1
[2016-11-24 11:06] LABS: Anion Gap 8 mmol/L; Blood Urea Nitrogen 8 mg/dL (7-17); Calcium 8.8 mg/dL (8.4-10.2); Carbon Dioxide 23 mmol/L (22-30); Chloride 110 mmol/L (98-107); Glucose 83 mg/dL (74-99); Non-African American GFR(MDRD) >60 (>60 ml/min/1.73 sqM); Potassium 4.4 mmol/L (3.5-5.1); Sodium 141 mmol/L (137-145)
[2016-11-24] MEDS ORDERED: IV FLUID CONTINUATION 900 ML IV ONE (11:57)
[2016-11-24] MEDS ORDERED: diphenhydrAMINE 50 MG/ML 1 ML VIAL IVP ONE (12:03)
[2016-11-24] MEDS ORDERED: LIDOCAINE 2% INJ 20 MG/ML SQ ONE (12:04)
[2016-11-24] MEDS: VERAPAMIL SYRINGE (5 MG/10 ML) INTRAARTER ONE ×2 (12:07→12:17)
[2016-11-24] MEDS ORDERED: HEPARIN SODIUM 1,000 UN/ML (10ML VL) IV ONE (12:15)
[2016-11-24] MEDS ORDERED: IOHEXOL 350 MG/ML 100 ML BOTTLE INJ ONE (12:20)
[2016-11-24] MEDS ORDERED: SODIUM CHLORIDE 0.9% 1,000 ML IV SCH (12:45)
[2016-11-24 17:27] VITALS: PULSE 77
--- NOTE | 2016-11-24 18:50 | CC ---
DATE OF PROCEDURE: 11/24/2016 PROCEDURE: Left heart catheterization and coronary angiography. PERFORMED BY: Dr. Marcie Mar CLINICAL INFORMATION: Mrs. Angela Dickerson is a 61-year-old lady with a history of breast cancer, status post chemotherapy, going for a bilateral mastectomy because of aggressive form of cancer. She is now receiving monoclonal antibodies. Because of an abnormal stress test with anterior wall moderate- sized partially reversible defect, I advised coronary angiography prior to elective surgery. Risks, benefits, options and rationale were explained. PROCEDURE NOTE: Under local anesthesia and strict aseptic precautions, a 6 [place]an introducer was placed in the right radial artery. I used a micropuncture needle technique to gain access. Using an Ultimate I catheter, I performed selective coronary angiography of both the left and right coronary arteries. LV gram was not performed, but LV pressures were checked. Patient tolerated the procedure well. The sheath was taken out and a Vasc band was used to secure hemostasis. Saturation in the fingers of the right hand was 93%. Patient tolerated well without complication. She was sent to the room in stable condition. Results were discussed with the patient and family. Moderate conscious sedation was provided for a total duration of 25 minutes. CARDIAC CATHETERIZATION FINDINGS The left ventricular end-diastolic pressure was 14 mmHg and there was no gradient across the aortic valve. CORONARY ANGIOGRAPHY FINDINGS RIGHT CORONARY ARTERY: Large, dominant, disease-free vessel that distally bifurcates into PDA and PLV, both of which are free of significant disease and supply a sizeable amount of myocardium. There is no significant disease in the dominant RCA. LEFT MAIN CORONARY ARTERY: Short patent vessel that is almost aneurysmal but has no significant disease and bifurcates into LAD and circumflex. LEFT ANTERIOR DESCENDING CORONARY ARTERY: This vessel was stented in 2004. At the site of stenting, the vessel is widely patent with remarkably brisk flow. There is a septal branch and a small diagonal branch and LAD is free of significant disease. It runs all the way to the apex, supplying a sizeable amount of myocardium. LEFT POSTERIOR CIRCUMFLEX CORONARY ARTERY: Codominant vessel. Gives off a large obtuse marginal. Has minor irregularities. Gives off a left atrial circumflex branch. There is no significant disease in the codominant circumflex system. LEFT VENTRICULOGRAM: This was not performed. FINAL IMPRESSION: This patient has no significant obstructive disease, and at the site of proximal LAD, which was almost ostial LAD, stenting was performed in 2004. That stented segment is widely patent with brisk flow without any evidence of restenosis. Non-dominant circumflex and dominant RCA are free of significant disease, and filling pressures are acceptable. LV gram was not performed. This patient tolerated the procedure well without complications. Results were discussed with the patient and family, and she was sent to the room in stable condition. CON
[2016-11-24 19:01] VITALS: RESP 20
[2016-11-24 19:06] VITALS: BP 99/55
[2016-11-25] MEDS ORDERED: ASPIRIN 81 MG CHEW PO SCH (09:00)
== END 2016-11-24 19:00 | disposition home or self-care (01) ==
LOC: CATHCVL 09:57
PROVIDERS: ATTEND Internal Medicine Interventional Cardiology
DX: R94.39 Abnormal result of other cardiovascular function study (principal); J44.9 Chronic obstructive pulmonary disease, unspecified; E78.5 Hyperlipidemia, unspecified; I25.10 Atherosclerotic heart disease of native coronary artery without angina pectoris; F17.210 Nicotine dependence, cigarettes, uncomplicated; Z68.27 Body mass index [BMI] 27.0-27.9, adult; E66.3 Overweight; I25.2 Old myocardial infarction; Z95.5 Presence of coronary angioplasty implant and graft; Z85.72 Personal history of non-Hodgkin lymphomas; Z79.51 Long term (current) use of inhaled steroids; Z79.899 Other long term (current) drug therapy; Z90.13 Acquired absence of bilateral breasts and nipples
CPT/HCPCS: 93458; 99152; 99153; 80048; C1769; C1894; J2001; J1200; Q9967; J1644

== ENCOUNTER → 2016-12-29 | Outpatient (CLI) | payer MEDICARE, OTHER ==
--- NOTE | 2016-12-30 13:27 | ECHOF ---
Referral Reason:C50.611 breast ca Z01.818 herceptin MEASUREMENTS -------- HEIGHT: 152.4 cm WEIGHT: 64.9 kg BP: RVIDd: 3.5 cm (< 3.3) IVSd: 1.2 cm (0.6 - 1.1) LVIDd: 4.6 cm (3.9 - 5.3) LVPWd: 0.9 cm (0.6 - 1.1) IVSs: 1.1 cm LVIDs: 3.8 cm LVPWs: 1.1 cm LA Diam: 3.2 cm (2.7 - 3.8) LAESV Index (A-L): 22.28 ml/m Ao Diam: 3.4 cm (2.0 - 3.7) AV Cusp: 1.7 cm (1.5 - 2.6) LA Diam: 3.3 cm (2.7 - 3.8) MV EXCURSION: 14.751 mm (> 18.000) MV EF SLOPE: 68 mm/s (70 - 150) EPSS: 0.2 cm MV E Rl: 0.39 m/s MV DecT: 227 ms MV A Rl: 0.74 m/s MV E/A Ratio: 0.52 RAP: 5.00 mmHg RVSP: 37.13 mmHg FINDINGS -------- Sinus rhythm. This was a technically adequate study. There is mild concentric left ventricular hypertrophy. Overall left ventricular systolic function is mildly impaired with, an EF between 45 - 50 %. The right ventricle is normal in size. The left atrial size is normal. The right atrial size is normal. The aortic valve is trileaflet, and appears structurally normal. No aortic stenosis or regurgitation. Mild mitral regurgitation is present. Mild tricuspid regurgitation present. There is mild pulmonary hypertension. The right ventricular systolic pressure, as measured by Doppler, is 37.13mmHg. Trace/mild (physiologic) pulmonic regurgitation. The aortic root size is normal. There is no pericardial effusion. CONCLUSIONS -------- 1. There is mild concentric left ventricular hypertrophy. 2. There is no pericardial effusion. 3. Overall left ventricular systolic function is mildly impaired with, an EF between 45 - 50 %. 4. The aortic valve is trileaflet, and appears structurally normal. No aortic stenosis or regurgitation. 5. Mild mitral regurgitation is present. 6. Mild tricuspid regurgitation present. 7. There is mild pulmonary hypertension. 8. The right ventricular systolic pressure, as measured by Doppler, is 37.13mmHg. 9. Trace/mild (physiologic) pulmonic regurgitation. 10. The aortic root size is normal. CLINICAL OPERATIONS CONSULTANT: Karo Martinez RDCS
== END | disposition home or self-care (01) ==
LOC: RADECHMAIN 13:00
PROVIDERS: ATTEND Internal Medicine Hematology & Oncology
DX: C50.611 Malignant neoplasm of axillary tail of right female breast (principal); I08.1 Rheumatic disorders of both mitral and tricuspid valves; I27.2 Other secondary pulmonary hypertension
CPT/HCPCS: 93306

== ENCOUNTER → 2017-02-27 | Outpatient (CLI) | payer MEDICARE, OTHER ==
--- NOTE | 2017-02-27 12:18 | ECHOF ---
Referral Reason:Breast CA C50.611 Z01.818 chemo exposure MEASUREMENTS -------- HEIGHT: 154.9 cm WEIGHT: 65.3 kg BP: 154/86 RVIDd: 3.6 cm (< 3.3) IVSd: 1.1 cm (0.6 - 1.1) LVIDd: 4.4 cm (3.9 - 5.3) LVPWd: 1.2 cm (0.6 - 1.1) IVSs: 1.5 cm LVIDs: 3.8 cm LVPWs: 1.8 cm LA Diam: 3.1 cm (2.7 - 3.8) LAESV Index (A-L): 21.86 ml/m Ao Diam: 3.2 cm (2.0 - 3.7) AV Cusp: 2.2 cm (1.5 - 2.6) EPSS: 0.9 cm MV E Rl: 0.73 m/s MV DecT: 227 ms MV A Rl: 0.87 m/s MV E/A Ratio: 0.84 RAP: 5.00 mmHg RVSP: 41.01 mmHg MV EF SLOPE: 51.90 mm/s (70 - 150) MV EXCURSION: 1.41 cm (> 18.000) FINDINGS -------- Sinus rhythm. This was a technically adequate study. The left ventricular size is normal. There is borderline concentric left ventricular hypertrophy. Overall left ventricular systolic function is low-normal with, an EF between 50 - 55 %. The right ventricle is mildly enlarged. Normal LA size by volume 22+/-6 ml/m2. The right atrium is normal in size. Aortic valve is trileaflet and is mildly thickened. Mild mitral annular calcification present. Mild mitral regurgitation is present. [id number] tricuspid regurgitation present. There is mild pulmonary hypertension. There is no pulmonic regurgitation present. The aortic root size is normal. The inferior vena cava is mildly dilated. There is no pericardial effusion. CONCLUSIONS -------- 1. Sinus rhythm. 2. This was a technically adequate study. 3. The left ventricular size is normal. 4. There is borderline concentric left ventricular hypertrophy. 5. Overall left ventricular systolic function is low-normal with, an EF between 50 - 55 %. 6. The right ventricle is mildly enlarged. 7. Normal LA size by volume 22+/-6 ml/m2. 8. The right atrium is normal in size. 9. Aortic valve is trileaflet and is mildly thickened. 10. Mild mitral annular calcification present. 11. Mild mitral regurgitation is present. 12. [id number]-[id number] tricuspid regurgitation present. 13. There is mild pulmonary hypertension. 14. There is no pulmonic regurgitation present. 15. The aortic root size is normal. 16. The inferior vena cava is mildly dilated. 17. There is no pericardial effusion. NYLON WINDER: CARISSA Marrero
== END | disposition home or self-care (01) ==
LOC: RADECHMAIN 11:05
PROVIDERS: ATTEND Internal Medicine Hematology & Oncology
DX: C50.611 Malignant neoplasm of axillary tail of right female breast (principal); I08.3 Combined rheumatic disorders of mitral, aortic and tricuspid valves; I27.20 Pulmonary hypertension, unspecified
CPT/HCPCS: 93306

== ENCOUNTER → 2017-05-04 | Outpatient (CLI) | payer MEDICARE, OTHER ==
--- NOTE | 2017-05-04 10:51 | ECHOF ---
Referral Reason:C50.611 breast Ca, Z01.818 Herceptin MEASUREMENTS -------- HEIGHT: 154.9 cm WEIGHT: 67.6 kg BP: RVIDd: 3.3 cm (< 3.3) IVSd: 1.2 cm (0.6 - 1.1) LVIDd: 4.3 cm (3.9 - 5.3) LVPWd: 1.1 cm (0.6 - 1.1) IVSs: 1.5 cm LVIDs: 3.0 cm LVPWs: 1.7 cm Ao Diam: 3.3 cm (2.0 - 3.7) AV Cusp: 1.6 cm (1.5 - 2.6) LA Diam: 2.3 cm (2.7 - 3.8) MV EXCURSION: 19.089 mm (> 18.000) MV EF SLOPE: 211 mm/s (70 - 150) EPSS: 0.9 cm MV E Rl: 0.60 m/s MV DecT: 159 ms MV A Rl: 0.94 m/s MV E/A Ratio: 0.64 RAP: 5.00 mmHg RVSP: 30.04 mmHg FINDINGS -------- Sinus rhythm. This was a technically difficult study with suboptimal views. The left ventricular size is normal. There is mild concentric left ventricular hypertrophy. Overa ll left ventricular systolic function is mildly impaired with, an EF between 45 - 50 %. Inferior Hy pokinesis The right ventricle is normal in size and function. The left atrium is normal in size. The right atrium is normal in size. 1.5mg of Definity was utilized for enhancement of images The aortic valve is trileaflet, and appears structurally normal. No aortic stenosis or regurgitation. The mitral valve leaflets are mildly thickened. Mild mitral annular calcification present. There is trace mitral regurgitation. Trace tricuspid regurgitation present. The right ventricular systolic pressure, as measured by Dopp ler, is 30.04mmHg. Pulmonic valve appears structurally normal. The aortic root size is normal. The pericardium is normal. CONCLUSIONS -------- 1. Sinus rhythm. 2. This was a technically difficult study with suboptimal views. 3. The left ventricular size is normal. 4. There is mild concentric left ventricular hypertrophy. 5. Overall left ventricular systolic function is mildly impaired with, an EF 45%. 6. Inferior Hypokinesis 7. The right ventricle is normal in size and function. 8. The left atrium is normal in size. 9. The right atrium is normal in size. 10. 1.5mg of Definity was utilized for enhancement of images 11. The aortic valve is trileaflet, and appears structurally normal. No aortic stenosis or regurgitat ion. 12. The mitral valve leaflets are mildly thickened. 13. Mild mitral annular calcification present. 14. There is trace mitral regurgitation. 15. Trace tricuspid regurgitation present. 16. The right ventricular systolic pressure, as measured by Doppler, is 30.04mmHg. 17. Pulmonic valve appears structurally normal. 18. The aortic root size is normal. 19. The pericardium is normal. TRANSFER PROFESSOR: Aida Palumbo RDCS
== END | disposition home or self-care (01) ==
LOC: RADECHMAIN 08:05
PROVIDERS: ATTEND Internal Medicine Hematology & Oncology
DX: Z01.818 Encounter for other preprocedural examination (principal); I08.1 Rheumatic disorders of both mitral and tricuspid valves; C50.611 Malignant neoplasm of axillary tail of right female breast
CPT/HCPCS: 93306

== ENCOUNTER → 2017-06-15 | Outpatient (CLI) | payer MEDICARE ==
--- NOTE | 2017-06-15 10:56 | ECHOF ---
Referral Reason:C50.611 Breast CA, Z01.818 Chemo Exposure MEASUREMENTS -------- HEIGHT: 154.9 cm WEIGHT: 67.1 kg BP: IVSd: 1.0 cm (0.6 - 1.1) LVIDd: 4.1 cm (3.9 - 5.3) LVPWd: 1.3 cm (0.6 - 1.1) IVSs: 1.7 cm LVIDs: 3.4 cm LVPWs: 1.3 cm LAESV Index (A-L): 13.81 ml/m Ao Diam: 3.4 cm (2.0 - 3.7) AV Cusp: 1.5 cm (1.5 - 2.6) LA Diam: 2.5 cm (2.7 - 3.8) MV EXCURSION: 11.800 mm (> 18.000) MV EF SLOPE: 70 mm/s (70 - 150) EPSS: 0.9 cm MV E Rl: 0.64 m/s MV DecT: 204 ms MV A Rl: 1.00 m/s MV E/A Ratio: 0.64 RAP: 5.00 mmHg RVSP: 14.52 mmHg FINDINGS -------- Sinus rhythm. This was a technically good study. Pt going through chemo treatments. The left ventricular size is normal. There is mild concentric left ventricular hypertrophy. There is mild global hypokinesis of LV . Overall left ventricular systolic function is mild-moderately i mpaired with, an EF between 40 - 45 %. The right ventricle is normal in size and function. The left atrium is normal in size. The right atrium is normal in size. 4 ml of Lumason was utilized for enhancement of images. The aortic valve is trileaflet, and appears structurally normal. No aortic stenosis or regurgitation. The mitral valve leaflets are mildly thickened. There is trace mitral regurgitation. Trace tricuspid regurgitation present. The right ventricular systolic pressure, as measured by Dopp ler, is 14.52mmHg. Pulmonic valve appears structurally normal. The aortic root size is normal. Normal inferior vena cava with normal inspiratory collapse consistent with estimated right atrial pre ssure of 5 mmHg. The pericardium is normal. CONCLUSIONS -------- 1. Sinus rhythm. 2. This was a technically good study. 3. Pt going through chemo treatments. 4. The left ventricular size is normal. 5. There is mild concentric left ventricular hypertrophy. 6. There is mild global hypokinesis of LV . 7. Overall left ventricular systolic function is mild-moderately impaired with, an EF between 40 - 45 %. 8. The right ventricle is normal in size and function. 9. The left atrium is normal in size. 10. The right atrium is normal in size. 11. 4 ml of Lumason was utilized for enhancement of images. 12. The aortic valve is trileaflet, and appears structurally normal. No aortic stenosis or regurgitat ion. 13. The mitral valve leaflets are mildly thickened. 14. There is trace mitral regurgitation. 15. Trace tricuspid regurgitation present. 16. The right ventricular systolic pressure, as measured by Doppler, is 14.52mmHg. 17. Pulmonic valve appears structurally normal. 18. The aortic root size is normal. 19. Normal inferior vena cava with normal inspiratory collapse consistent with estimated right atrial pressure of 5 mmHg. 20. The pericardium is normal. SERVER DEVELOPER: Aida Palumbo RDCS
== END | disposition home or self-care (01) ==
LOC: RADECHMAIN 08:05
PROVIDERS: ATTEND Internal Medicine Hematology & Oncology
DX: I05.8 Other rheumatic mitral valve diseases (principal); C50.611 Malignant neoplasm of axillary tail of right female breast
CPT/HCPCS: C8929; Q9950; 93306

== ENCOUNTER 2017-07-25 06:34 | Day surgery (SDC) | payer MEDICARE ==
[2017-07-23 08:28] VITALS: BMI 26.4
[~2017-07-25 06:34] MED LIST changes: -ALPRAZolam 0.25 MG TAB PO PRN; -ALPRAZolam 0.5 MG TAB PO PRN; -ASPIRIN 325 MG TAB PO STA; -ATORVASTATIN 80 MG TAB PO STA; +DEXAMETHASONE SOD PHOSPHATE 10 MG/ML 1 ML VIAL IV ONE; +HEPARIN SODIUM,PORCINE 5,000 UNIT/ML 1 ML VIAL SQ ONE; +HYDROmorphone 0.5 MG/0.5 ML SYRINGE IVP PRN; +LACTATED RINGERS 1,000 ML IV SCH; +MORPHINE SULFATE 4 MG/ML SYRINGE IV PRN; -NITROGLYCERIN SL TABS 0.4 MG TAB SUBLINGUAL PRN; +ONDANSETRON 4 MG/2 ML VIAL IVP ONE; +ONDANSETRON 4 MG/2 ML VIAL IVP PRN; -SODIUM CHLORIDE 0.9% 1,000 ML in EMPTY BAG 1 BAG IV ONE; +ceFAZolin IN SWFI 2 GM/20 ML SYRINGE IVP ONE
[2017-07-25 06:54] VITALS: TEMP 98.1
[2017-07-25] MEDS ORDERED: LIDOCAINE 1% 20 ML VIAL (10MG/ML) FOR IV START INTRADERMA ONE (07:18)
--- NOTE | 2017-07-25 07:50 | P.GSHP ---
History of Present Illness H&P Date: 07/25/17 Chief Complaint: History of right breast cancer This is a 62-year-old female with history of right breast cancer. Patient rents today for removal of Port-A-Cath. Past Medical History Past Medical History: Coronary Artery Disease (CAD), Cancer, COPD, Hyperlipidemia, Myocardial Infarction ([place]), Pneumonia Additional Past Medical History / Comment(s): aneurysm,. breast cancer Last Myocardial Infarction Date:: 2004 History of Any Multi-Drug Resistant Organisms: None Reported Past Surgical History: Breast Surgery, Heart Catheterization With Stent, Hysterectomy, Orthopedic Surgery Additional Past Surgical History / Comment(s): "bilat mastectomy, surgery rt kidney to remove kidney stone , geovanni shoulder rotator cuff Past Anesthesia/Blood Transfusion Reactions: No Reported Reaction Date of Last Stent Placement:: 2004 Smoking Status: Current every day smoker - Past Family History Sister(s) Family Medical History: Cancer Father Family Medical History: Cancer Mother Family Medical History: Cancer Medications and Allergies Home Medications Medication Instructions Recorded Confirmed Type Albuterol Nebulized [Ventolin 2.5 mg INHALATION DIRECTED PRN 10/21/13 History Nebulized] Tiotropium [place] [Spiriva] 1 puff IH DAILY 10/21/13 07/25/17 History Albuterol Inhaler [Ventolin Hfa 1 - 2 puff INHALATION DIRECTED 06/14/1607/25 History Inhaler] PRN Atorvastatin [Lipitor] 80 mg PO DAILY 06/14/16 07/25/17 History Budesonide-Formot 160-4.5 Mcg 1 puff INHALATION BID 06/14/16 07/25/17 History [Symbicort 160-4.5 Mcg Inhaler] Ergocalciferol [Vitamin D2] 50,000 unit PO WE 06/14/16 07/25/17 History Pantoprazole Sodium 20 mg PO DAILY 06/14/16 07/25/17 History Pregabalin [Lyrica] 75 mg PO DAILY 06/14/16 07/25/17 History Acetaminophen-Codeine 300-30mg 2 tab PO Q4H PRN #30 tablet 07/14/16 07/25/17 Rx [Tylenol #3] Metoprolol Tartrate [Lopressor] 25 mg PO HS 11/24/16 07/25/17 History Metoprolol Tartrate [Lopressor] 50 mg PO DAILY 11/24/16 07/25/17 History Aspirin EC [Ecotrin Low Dose] 81 mg PO DAILY 07/23/17 07/25/17 History Allergies Allergy/AdvReac Type Severity Reaction Status Date / Time No Known Allergies Allergy Verified 07/25/17 06:54 Surgical - Exam Vital Signs Temp Pulse Resp BP Pulse Ox 98.1 F 101 H 20 117/80 90 L 07/25/17 06:52 07/25/17 06:52 07/25/17 06:52 07/25/17 06:52 07/25/17 06:52 - General well developed, no distress - Eyes PERRL - ENT normal pinna - Neck no masses - Respiratory normal expansion - Cardiovascular Rhythm: regular - Abdomen Abdomen: soft, non tender Assessment and Plan Assessment: History of breast cancer. We'll perform removal of Port-A-Cath.
[2017-07-25] MEDS ORDERED: MIDAZOLAM 2 MG/2 ML VIAL ONE (07:59)
[2017-07-25] MEDS ORDERED: fentaNYL (PF) 50 MCG/ML 2 ML AMP ONE (07:59)
[2017-07-25] MEDS ORDERED: BUPIVACAINE (PF) 0.25% 30 ML VIAL SQ ONE ×2 (08:16)
[2017-07-25 08:55] VITALS: RESP 20
[2017-07-25 09:21] VITALS: BP 130/87; PULSE 89
--- NOTE | 2017-08-02 11:00 | P.OP ---
Date of Procedure: 08/02/17 Preoperative Diagnosis: Breast cancer Postoperative Diagnosis: Breast cancer Procedure(s) Performed: Removal of left subclavian Port-A-Cath Anesthesia: MAC Surgeon: Tyree Eric Estimated Blood Loss (ml): 5 Pathology: none sent Condition: stable Disposition: PACU Description of Procedure: Patient's placed on the operating table in the supine position. She received IV sedation. The skin was anesthetized 1% local Xylocaine. A skin incision was made over the Port-A-Cath site. And then using blunt and sharp dissection and electrocautery the Port-A-Cath was dissected free from the chest wall. Port -A-Cath was removed intact catheter. The skin was closed interrupted 3-0 Monocryl suture. Dermabond was applied. Patient top procedure well and was sent to recovery in stable condition.
== END 2017-07-25 09:40 | disposition home or self-care (01) ==
LOC: OR 06:34
PROVIDERS: ATTEND Surgery
DX: Z45.2 Encounter for adjustment and management of vascular access device (principal); Z85.3 Personal history of malignant neoplasm of breast; Z90.13 Acquired absence of bilateral breasts and nipples; J44.9 Chronic obstructive pulmonary disease, unspecified; E78.5 Hyperlipidemia, unspecified; I25.10 Atherosclerotic heart disease of native coronary artery without angina pectoris; Z95.5 Presence of coronary angioplasty implant and graft; I25.2 Old myocardial infarction; Z79.82 Long term (current) use of aspirin; Z79.51 Long term (current) use of inhaled steroids; Z79.899 Other long term (current) drug therapy; F17.210 Nicotine dependence, cigarettes, uncomplicated

== ENCOUNTER → 2017-09-14 | Outpatient (CLI) | payer MEDICARE, OTHER ==
--- NOTE | 2017-09-14 10:24 | ECHOF ---
Referral Reason:Breast Cancer C50.611, Chemo Exposure Z01.818 MEASUREMENTS -------- HEIGHT: 154.9 cm WEIGHT: 63.5 kg BP: IVSd: 1.2 cm (0.6 - 1.1) LVIDd: 4.5 cm (3.9 - 5.3) LVPWd: 0.8 cm (0.6 - 1.1) IVSs: 1.3 cm LVIDs: 3.5 cm LVPWs: 1.0 cm Ao Diam: 3.3 cm (2.0 - 3.7) AV Cusp: 2.4 cm (1.5 - 2.6) LA Diam: 2.3 cm (2.7 - 3.8) MV EXCURSION: 20.130 mm (> 18.000) MV EF SLOPE: 123 mm/s (70 - 150) EPSS: 1.7 cm MV E Rl: 0.59 m/s MV DecT: 223 ms MV A Rl: 0.88 m/s MV E/A Ratio: 0.68 RAP: 5.00 mmHg RVSP: 23.82 mmHg FINDINGS -------- Sinus rhythm. This was a technically good study. The left ventricular size is normal. Left ventricular wall thickness is normal. There is mild soheila bal hypokinesis of LV . Overall left ventricular systolic function is mild-moderately impaired with , an EF between 40 - 45 %. The right ventricle is normal in size and function. The left atrium is normal in size. The right atrium is normal in size. The aortic valve is trileaflet, and appears structurally normal. No aortic stenosis or regurgitation. Mild mitral regurgitation is present. Mild tricuspid regurgitation present. The right ventricular systolic pressure, as measured by Doppl er, is 23.82mmHg. Pulmonic valve appears structurally normal. The aortic root size is normal. Normal inferior vena cava with normal inspiratory collapse consistent with estimated right atrial pre ssure of 5 mmHg. The pericardium is normal. CONCLUSIONS -------- 1. Sinus rhythm. 2. This was a technically good study. 3. The left ventricular size is normal. 4. Left ventricular wall thickness is normal. 5. There is mild global hypokinesis of LV . 6. Overall left ventricular systolic function is mild-moderately impaired with, an EF between 40 - 45 %. 7. The right ventricle is normal in size and function. 8. The left atrium is normal in size. 9. The right atrium is normal in size. 10. The aortic valve is trileaflet, and appears structurally normal. No aortic stenosis or regurgitat ion. 11. Mild mitral regurgitation is present. 12. Mild tricuspid regurgitation present. 13. The right ventricular systolic pressure, as measured by Doppler, is 23.82mmHg. 14. Pulmonic valve appears structurally normal. 15. The aortic root size is normal. 16. Normal inferior vena cava with normal inspiratory collapse consistent with estimated right atrial pressure of 5 mmHg. 17. The pericardium is normal. ENGINEER INTERNSHIP: Aida Palumbo RDCS
== END ==
LOC: RADECHMAIN 08:10
PROVIDERS: ATTEND Internal Medicine Hematology & Oncology
DX: I08.1 Rheumatic disorders of both mitral and tricuspid valves (principal); C50.611 Malignant neoplasm of axillary tail of right female breast; Z92.21 Personal history of antineoplastic chemotherapy
CPT/HCPCS: 93306

== ENCOUNTER 2020-02-08 14:50 | Inpatient (IN) | payer MEDICARE ==
--- NOTE | 2020-02-08 15:14 | ED ---
Extremity Problem HPI - General Chief complaint: Extremity Problem,Nontraumatic Stated complaint: Blood clot Time Seen by Provider: 02/08/20 14:50 Source: patient, RN/MD, EMS, RN notes reviewed, old records reviewed Mode of arrival: EMS Limitations: no limitations - History of Present Illness Initial comments: This is a 64-year-old female with a history of breast cancer and mastectomy in the past who states she's had right upper extremity edema for the past 3-4 days and this morning woke up with swelling to the left thigh area. She went to a hospital in [facility] and her workup was found to have a left lower lobe pulmonary embolism days. Vena cava thrombus on the right also evidence of left upper lobe mass is consistent with metastases. The patient was transferred here for further evaluation after discussion with Dr. Yun and with Dr. Giron by Dr. Cole. Patient complains no chest pain this time no fevers chills or sweats no other symptoms MD Complaint: extremity swelling, other - Related Data Home Medications Medication Instructions Recorded Confirmed Albuterol Nebulized [Ventolin 2.5 mg INHALATION DIRECTED PRN 10/21/13 07/25/17 Nebulized] Tiotropium [place] [Spiriva] 1 puff IH DAILY 10/21/13 07/25/17 Albuterol Inhaler (Mhu) [Ventolin 1 - 2 puff INHALATION DIRECTED 06/14/16 07/25/17 Hfa Inhaler] PRN Atorvastatin [Lipitor] 80 mg PO DAILY 06/14/16 07/25/17 Budesonide-Formot 160-4.5 Mcg 1 puff INHALATION BID 06/14/16 07/25/17 [Symbicort 160-4.5 Mcg Inhaler] Ergocalciferol [Vitamin D2] 50,000 unit PO WE 06/14/16 07/25/17 Pantoprazole Sodium 20 mg PO DAILY 06/14/16 07/25/17 Pregabalin [Lyrica] 75 mg PO DAILY 06/14/16 07/25/17 Metoprolol Tartrate [Lopressor] 25 mg PO HS 11/24/16 07/25/17 Metoprolol Tartrate [Lopressor] 50 mg PO DAILY 11/24/16 07/25/17 Aspirin EC [Ecotrin Low Dose] 81 mg PO DAILY 07/23/17 07/25/17 Previous Rx's Medication Instructions Recorded Acetaminophen-Codeine 300-30mg 2 tab PO Q4H PRN #30 tablet 07/14/16 [Tylenol #3] Allergies Allergy/AdvReac Type Severity Reaction Status Date / Time No Known Allergies Allergy Verified 07/25/17 06:54 Review of Systems ROS Statement: Those systems with pertinent positive or pertinent negative responses have been documented in the HPI. ROS Other: All systems not noted in ROS Statement are negative. Past Medical History Past Medical History: Coronary Artery Disease (CAD), Cancer, COPD, Hyperlipidemia, Myocardial Infarction ([place]), Pneumonia Additional Past Medical History / Comment(s): aneurysm,. breast cancer, Lung cancer, clot in right subclavian Vein Last Myocardial Infarction Date:: 2004 History of Any Multi-Drug Resistant Organisms: None Reported Past Surgical History: Breast Surgery, Heart Catheterization With Stent, Hysterectomy, Orthopedic Surgery Additional Past Surgical History / Comment(s): "bilat mastectomy, surgery rt kidney to remove kidney stone , geovanni shoulder rotator cuff Past Anesthesia/Blood Transfusion Reactions: No Reported Reaction Date of Last Stent Placement:: 2004 Past Psychological History: No Psychological Hx Reported Smoking Status: Current every day smoker Past Alcohol Use History: None Reported Past Drug Use History: None Reported - Past Family History Sister(s) Family Medical History: Cancer Father Family Medical History: Cancer Mother Family Medical History: Cancer General Exam - General Exam Comments Initial Comments: This is a well-developed well-nourished awake alert oriented 3 female Limitations: no limitations General appearance: alert, anxious Head exam: Present: normocephalic, other Eye exam: Present: PERRL, EOMI, other (Some left periorbital edema noted.) ENT exam: Present: normal exam, mucous membranes moist Neck exam: Present: normal inspection, full ROM, other (Bruits) Respiratory exam: Present: decreased breath sounds (Some decreased breath sounds noted) Cardiovascular Exam: Present: normal rhythm, tachycardia GI/Abdominal exam: Present: soft, normal bowel sounds. Absent: distended, tenderness, guarding, rebound, rigid Extremities exam: Present: full ROM, normal capillary refill, other (Right upper extremity is edematous compared to the side.). Absent: tenderness, pedal edema, joint swelling, calf tenderness Back exam: Present: normal inspection Neurological exam: Present: alert, oriented X3, CN II-XII intact Psychiatric exam: Present: normal affect, normal mood Skin exam: Present: warm, dry, intact, normal color. Absent: rash Course Vital Signs 02/08/20 14:54 Temperature 98.1 F Pulse Rate 111 H Respiratory 18 Rate Blood Pressure 116/81 O2 Sat by Pulse 93 L Oximetry Medical Decision Making - Medical Decision Making I did review the materials presented from the sending hospital. It is consistent with report patient will be admitted I discuss case with Dr. Catherine. Consultation by the above physicians. Disposition Clinical Impression: Deep vein thrombosis (DVT) of upper extremity, Pulmonary embolism, HX: breast cancer, Mass of left lung Disposition: ADMITTED IP TO THIS HOSP Condition: Stable Referrals: Evelio Catherine MD [Primary Care Provider] - 1-2 days
[2020-02-08] MEDS ORDERED: NALOXONE 0.4 MG/ML 1 ML VIAL IV PRN (15:15)
[2020-02-08] MEDS: HEPARIN SOD,PORK IN 0.45% NACL 25,000 UNIT in 0.45% NACL 1 250ML.BAG IV SCH (15:32)
[2020-02-08] MEDS: SODIUM CHLORIDE 0.9% 1,000 ML IV SCH (17:32)
[2020-02-08] MEDS ORDERED: IBUPROFEN 800 MG TAB PO PRN (18:56)
[2020-02-08] MEDS ORDERED: diazePAM 5 MG TAB PO PRN (18:56)
[2020-02-08] MEDS ORDERED: IPRATROPIUM-ALBUTEROL 3 ML NEB INHALATION PRN (18:59)
[2020-02-08] MEDS: SYMBICORT 160-4.5 MCG INHALER INHALATION SCH (19:13)
[2020-02-08] MEDS: IPRATROPIUM-ALBUTEROL 3 ML NEB INHALATION SCH (19:14)
--- NOTE | 2020-02-08 19:53 | HP ---
HISTORY AND PHYSICAL CHIEF COMPLAINT: Swelling in the right arm with some puffiness in the face and discomfort across the right upper anterior chest for week. HISTORY OF PRESENT ILLNESS: This lady underwent treatment for breast cancer in 2017. She had bilateral mastectomy followed by chemotherapy, and radiation therapies. She has been doing fairly well. She continues to be a very heavy smoker, however. [place] noticed some swelling in the right arm and then puffiness in the face. She had a little discomfort across the right anterior chest, but no significant pain, otherwise. She has had no increased shortness of breath, cough, hemoptysis, orthopnea, PND, anorexia, etc. She went to a hospital up [place] and they suggested that she come back home for further evaluation. She apparently has a DVT in the right subclavian and involvement of the superior vena cava as well. They also found left lower lobe pulmonary embolism. It looks as though there may be an upper lobe mass with metastases. REVIEW OF SYSTEMS: She denies any headaches, change in vision or hearing, cough, hemoptysis, palpitations, abdominal pain, nausea, vomiting, hematemesis, melena, hematochezia, jaundice, hepatitis, cirrhosis, renal failure, hematuria, frequency, urgency, incontinence, diabetes, etc. Past medical history, family history and personal and social histories are unremarkable. She is not allergic to any medications. She uses albuterol and she is also on vitamin D once a month. She takes atorvastatin 80 mg q.h.s., Symbicort 160/4.5 two puffs twice a day, diazepam 5 mg once a day p.r.n., ibuprofen 800 mg q.i.d. p.r.n., metoprolol 50 mg in morning and 25 q.h.s., montelukast 10 mg once a day, pantoprazole 40 mg once a day, pregabalin 75 mg twice a day, Ropinirole 2.2 mg twice a day, Spiriva once a day. She has been heavy smoker and stopped apparently a week or two ago. PHYSICAL EXAM: Temp is 98.1 with a pulse of 111, respirations are 18, blood pressure is 116/81, pulse ox 93. In general she appeared to be slightly edematous and slightly pale. Head, ears, eyes, nose, mouth, and throat were otherwise normal. There seemed to be little swelling over the manubrium. There was no palpable adenopathy in the neck or supraclavicular areas. Breath sounds were very poor throughout. There is no axillary adenopathy palpated. Cardiac exam demonstrated what sounded like normal sinus rhythm with no murmurs or extra sounds. Abdomen is soft and nontender without visceromegaly or masses. Bowel sounds are present. Extremities normal. Neurologically she is intact. She is obviously concerned and frightened. IMPRESSION: She is admitted to the hospital with diagnoses: 1. Swelling in the face and the right arm. 2. Superior vena cava syndrome. 3. Likely lung carcinoma of the right upper lobe. 4. Chronic obstructive pulmonary disease. 5. Status post history of breast cancer. PLAN: 1. Bed rest. 2. IV fluids. 3. Consult with Pulmonology, vascular surgery and Oncology. MMPERCYL / OPALN: [id number] /
[2020-02-08] MEDS: PREGABALIN 75 MG CAP PO SCH (20:47)
[2020-02-08] MEDS: METOPROLOL TARTRATE 25 MG TAB PO SCH (20:47)
[2020-02-08 20:59] LABS: Basophils # (A) 0.1 k/uL (0-0.2); Basophils % (A) 1 %; Eosinophils # (A) 0.1 k/uL (0-0.7); Eosinophils % (A) 1 %; HCT 46.2 % (34.0-46.0); HGB 14.3 gm/dL (11.4-16.0); Hypochromasia Moderate; Lymphocytes # (A) 1.8 k/uL (1.0-4.8); Lymphocytes % (A) 19 %; MCH 26.8 pg (25.0-35.0); MCHC 30.9 g/dL (31.0-37.0); MCV 86.8 fL (80.0-100.0); Monocytes # (A) 0.6 k/uL (0-1.0); Monocytes % (A) 6 %; Neutrophils # (A) 6.8 k/uL (1.3-7.7); Neutrophils % (A) 72 %; Platelet Count 198 k/uL (150-450); RBC 5.33 m/uL (3.80-5.40); RDW 14.8 % (11.5-15.5); WBC 9.5 k/uL (3.8-10.6)
[2020-02-08 21:23] LABS: ALT 10 U/L (4-34); AST 17 U/L (14-36); African American GFR (CKD) >90 (>60 ml/min/1.73 sqM); Albumin 3.8 g/dL (3.5-5.0); Albumin/Globulin Ratio 1.3; Alkaline Phosphatase 115 U/L (38-126); Anion Gap 4 mmol/L; Blood Urea Nitrogen 11 mg/dL (7-17); Calcium 9.1 mg/dL (8.4-10.2); Carbon Dioxide 28 mmol/L (22-30); Chloride 104 mmol/L (98-107); Glucose 109 mg/dL (74-99); Non-African American GFR(CKD) >90 (>60 ml/min/1.73 sqM); Sodium 136 mmol/L (137-145); Total Bilirubin 0.3 mg/dL (0.2-1.3); Total Protein 6.8 g/dL (6.3-8.2)
[2020-02-09 05:09] LABS: Basophils # (A) 0.1 k/uL (0-0.2); Basophils % (A) 1 %; Eosinophils # (A) 0.1 k/uL (0-0.7); Eosinophils % (A) 1 %; HCT 46.8 % (34.0-46.0); HGB 14.5 gm/dL (11.4-16.0); Hypochromasia Moderate; Lymphocytes # (A) 1.5 k/uL (1.0-4.8); Lymphocytes % (A) 18 %; MCV 86.9 fL (80.0-100.0); Monocytes # (A) 0.5 k/uL (0-1.0); Monocytes % (A) 6 %; Neutrophils % (A) 72 %; Platelet Count 191 k/uL (150-450); RBC 5.38 m/uL (3.80-5.40); RDW 14.9 % (11.5-15.5); WBC 8.3 k/uL (3.8-10.6)
[2020-02-09] MEDS ORDERED: NON FORMULARY DRUG (Tiotropium Bromide [Spiriva] 18 MCG Cap.W.Dev) INHALATION SCH (08:00)
[2020-02-09] MEDS: IPRATROPIUM-ALBUTEROL 3 ML NEB INHALATION SCH ×4 (08:22→18:47)
[2020-02-09] MEDS: SYMBICORT 160-4.5 MCG INHALER INHALATION SCH ×2 (08:23→18:47)
[2020-02-09] MEDS: MONTELUKAST 10 MG TAB PO SCH (08:41)
[2020-02-09] MEDS: METOPROLOL TARTRATE 50 MG TAB PO SCH (08:41)
[2020-02-09] MEDS: PANTOPRAZOLE 40 MG TABLET PO SCH (08:42)
[2020-02-09] MEDS: PREGABALIN 75 MG CAP PO SCH ×2 (08:42→20:55)
[2020-02-09] MEDS: ATORVASTATIN 80 MG TAB PO SCH (08:42)
[2020-02-09] MEDS: NICOTINE 14MG/24HR PATCH TRANSDERM SCH (08:42)
--- NOTE | 2020-02-09 09:02 | P.CONS ---
History of Present Illness - Reason for Consult Consult date: 02/09/20 Hx Breast Cancer Requesting physician: Wayne Butler - Chief Complaint PE - History of Present Illness This is a very nice lady who was initially referred in because of high risk of breast cancer found Radha risk assessement during physical exam. She was referred back in because she presented with palpable right axillary mass in ,she had mammograms on 05/11/2016 revealing asymmetry at 8 o'clock,U/S of right axilla reported 1.9cm node,core biopsy of right breast lesion on 05/18/2016 was negative,she had D and C on 05/24/2016,biopsies from endometrium,the cervix were benign. Excisional biopsy of right axillary on 06/16/2016 was positive for pooly differentiated squamous cell carcinoma. CT scan of chest/abdomen/pelvis on 06/26/2016 revealed massive right axillary nodes,at least 10.7cm in craniocaudal dimension and 7.1cm in AP di mension,otherwise negative. 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 Bilateral breast MRI on 07/13/2016 revealed right axillary adenopathies,otherwise no suspicious finding in both breasts. 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 She started TCH-P on 07/21/2016 Repeat echocardiogram on 09/06/2016 revealed EF of 40-45%. She completed 6 cycles of TCH-P on 11/03/2016. She had bilateral mastectomies on 11/27/2016and right axillay nodes resection,no residual malignancy. She had hysterectomy and BSO end of . Repeat echocardiogram on 05/04/2017 revealed EF 45-50%,stable compared to her initial echocardiogram She completed adjuvant radiation therapy in She started neratinib on 07/25/2017 and completed one year in June/[address] Jara in November. She presented to outside hospital with SOB, was found to have pulmonary embolism and transferred to [facility]. She has been started on anticoagulation. She does continue to smoke. Review of Systems All systems: negative Constitutional: Reports as per HPI Past Medical History Past Medical History: Coronary Artery Disease (CAD), Cancer, COPD, Hyperlipidemia, Myocardial Infarction ([place]), Pneumonia Additional Past Medical History / Comment(s): aneurysm,. breast cancer, Lung cancer, clot in right subclavian Vein Last Myocardial Infarction Date:: 2004 History of Any Multi-Drug Resistant Organisms: None Reported Past Surgical History: Breast Surgery, Heart Catheterization With Stent, Hysterectomy, Orthopedic Surgery Additional Past Surgical History / Comment(s): "bilat mastectomy, surgery rt kidney to remove kidney stone , geovanni shoulder rotator cuff Past Anesthesia/Blood Transfusion Reactions: No Reported Reaction Date of Last Stent Placement:: 2004 Past Psychological History: No Psychological Hx Reported Smoking Status: Current every day smoker Past Alcohol Use History: None Reported Additional Past Alcohol Use History / Comment(s): smokes < 1 PPD for past 50 yrs Past Drug Use History: None Reported - Past Family History Sister(s) Family Medical History: Cancer Father Family Medical History: Cancer Mother Family Medical History: Cancer Medications and Allergies Home Medications Medication Instructions Recorded Confirmed Type Tiotropium [place] [Spiriva] 1 cap INHALATION RT-DAILY 10/21/13 02/08/20 History Budesonide-Formot 160-4.5 Mcg 2 puff INHALATION RT-BID 06/14/16 02/08/20 History [Symbicort 160-4.5 Mcg Inhaler] Ergocalciferol [Vitamin D2] 100,000 unit PO Q30D 06/14/16 02/08/20 History Pregabalin [Lyrica] 75 mg PO BID 06/14/16 02/08/20 History Metoprolol Tartrate [Lopressor] 50 mg PO DAILY 11/24/16 02/08/20 History Albuterol Sulfate [Ventolin HFA] 1 - 2 puff INHALATION RT-QID PRN 02/08/20 02/08/20 History Atorvastatin [Lipitor] 80 mg PO DAILY 02/08/20 02/08/20 History Ibuprofen [Motrin] 800 mg PO QID PRN 02/08/20 02/08/20 History Metoprolol Tartrate [Lopressor] 25 mg PO HS 02/08/20 02/08/20 History Montelukast [Singulair] 10 mg PO DAILY 02/08/20 02/08/20 History Pantoprazole [Protonix] 40 mg PO DAILY 02/08/20 02/08/20 History diazePAM [Valium] 5 mg PO QID PRN 02/08/20 02/08/20 History rOPINIRole HCL [Requip] 2 mg PO BID 02/08/20 02/08/20 History Allergies Allergy/AdvReac Type Severity Reaction Status Date / Time No Known Allergies Allergy Verified 02/08/20 16:32 Physical Exam Vitals: Vital Signs Temp Pulse Pulse Resp BP BP Pulse Ox 02/09/20 08:33 100 02/09/20 08:25 96 02/09/20 05:00 97.5 F L 85 20 151/63 95 02/08/20 21:05 80 19 02/08/20 21:00 98.4 F 85 18 112/73 95 02/08/20 19:23 100 02/08/20 19:15 100 02/08/20 16:18 98.1 F 80 19 109/53 92 L 02/08/20 15:59 98.1 F 111 H 18 116/81 93 L 02/08/20 15:50 98.1 F 80 19 109/53 92 L 02/08/20 14:54 98.1 F 111 H 18 116/81 93 L Intake and Output 02/08/20 02/09/20 02/09/20 22:59 06:59 14:59 Intake Total 658.598 100.868 Balance 658.598 100.868 Intake: Intake, IV Titration 68.598 100.868 Amount Heparin Sod,Pork in 0.45% 68.598 100.868 NaCl 25,000 unit In 0.45 % NaCl 1 250ml.bag @ 18 UNITS/KG/HR 11.594 mls/hr IV .[id number] [facility] Rx#: [id number] Oral 590 Other: Voiding Method Toilet # Voids 1 1 Weight 64.41 kg - Constitutional General appearance: cooperative, no acute distress - EENT Eyes: EOMI ENT: NA/AT, normal oropharynx - Neck Neck: normal ROM - Respiratory Respiratory: bilateral: CTA - Cardiovascular Rhythm: regular Heart sounds: normal: S1, S2 - Gastrointestinal General gastrointestinal: soft - Integumentary Integumentary: pale - Neurologic Neurologic: CNII-XII intact - Musculoskeletal Musculoskeletal: strength equal bilaterally, right sided weakness - Psychiatric Psychiatric: A&O x's 3, appropriate affect, intact judgment & insight Results CBC & Chem 7: 02/09/20 04:54 02/08/20 20:34 Labs: Abnormal Lab Results - Last 24 Hours (Table) 02/08/20 02/08/20 02/08/20 Range/Units 20:34 20:34 20:34 Hct 46.2 H (34.0-46.0) % MCHC 30.9 L (31.0-37.0) g/dL APTT 48.3 H (22.0-30.0) sec Sodium 136 L (137-145) mmol/L Glucose 109 H (74-99) mg/dL 02/09/20 02/09/20 Range/Units 04:54 04:54 Hct 46.8 H (34.0-46.0) % MCHC (31.0-37.0) g/dL APTT 58.6 H (22.0-30.0) sec Sodium (137-145) mmol/L Glucose (74-99) mg/dL CT scan - abdomen: report reviewed CT scan - chest: report reviewed CT scan - pelvis: report reviewed Venous US: report reviewed Assessment and Plan Plan: Acute DVT and PE: - Currently on Heparin drip - Continue on Heparin drip until decision is made regarding if biopsy is needed - Then can switch to DOAC - Work-up for occult malignancy bone scan and CT abdomen and pelvis HX: Breast Cancer: - Diagnostics and therapeutics described in detail in HPI - CT abdomen and pelvis and Bone Scan Active Smoker: - Cessation advised Lung Mass EBONIE: - With active smoking and history of breast cancer biopsy needed - Will remain on heparin drip until tissue biopsy is performed Physician attest: I have completed the full history and physical anad agree with above dictation dctated as ascribe.
--- NOTE | 2020-02-09 10:37 | US ---
EXAMINATION TYPE: US venous doppler duplex LE DATE OF EXAM: 02/09/2020 9:30 AM COMPARISON: CT CLINICAL HISTORY: Pulmonary embolism. PE SIDE PERFORMED: Bilateral TECHNIQUE: The lower extremity deep venous system is examined utilizing real time linear array sonog radha with graded compression, doppler sonography and color-flow sonography. VESSELS IMAGED: External Iliac Vein (EIV) Common Femoral Vein Deep Femoral Vein Greater Saphenous Vein * Femoral Vein Popliteal Vein Small Saphenous Vein * Proximal Calf Veins (* superficial vessels) Right Leg: Negative for deep venous thrombosis. Normal flow, compressibility, and vascular waveforms . Left Leg: Negative for deep venous thrombosis. Normal flow, compressibility, and vascular waveforms. IMPRESSION: No deep venous thrombosis of the bilateral lower extremities.
[2020-02-09] MEDS: IOPAMIDOL CONTRAST (ORAL USE) VIAL PO PRN ×2 (11:27→12:52)
[2020-02-09] MEDS: HEPARIN SOD,PORK IN 0.45% NACL 25,000 UNIT in 0.45% NACL 1 250ML.BAG IV SCH (12:58)
--- NOTE | 2020-02-09 14:42 | P.GSCN ---
History of Present Illness Consult date: 02/09/20 Reason for Consult: Pulmonary embolism History of present illness: This is a 64-year-old female with a history of breast cancer and mastectomy with chemotherapy and radiation in 2017. The patient also has a past medical history of coronary artery disease, COPD, hyperlipidemia, and is a current half a pack or more a day smoker for the past 45-50 years. She states she noticed approximately a week ago she was starting to have right arm swelling, then 3-4 days ago she was having swelling in the left side of her face and I almost to the point where her left eye would not open. She's also was noticing some dilation of veins on her chest. She states she has frequent muscle spasms along her chest and upper abdomen and has been occurring for some time now. She went to a hospital in [facility] and she underwent a CT of the chest which showed significant thrombosis in the superior vena cava and there is a 2 cm mass anterior to the superior vena cava. There is thrombus seen in the left lower lobe pulmonary artery. There are 2 lesions in the left upper lobe consistent with a neoplasm. There is a lesion in the right upper lobe consistent with neoplasm there is a small nodule in the left lower lobe consistent with metas tasis. An ultrasound venous duplex of the right upper extremity showed no evidence of thrombosis. Currently the patient denies any shortness of breath, chest pain, difficulty breathing. She does state that she gets the muscle spasms frequently in her upper abdomen and chest. Review of Systems 14 point review of systems was completed all pertinent positives and negatives as stated in the HPI Past Medical History Past Medical History: Coronary Artery Disease (CAD), Cancer, COPD, Hyperlipidemia, Myocardial Infarction (DE), Pneumonia Additional Past Medical History / Comment(s): aneurysm,. breast cancer, Lung cancer, clot in right subclavian Vein Last Myocardial Infarction Date:: 2004 History of Any Multi-Drug Resistant Organisms: None Reported Past Surgical History: Breast Surgery, Heart Catheterization With Stent, Hyst erectomy, Orthopedic Surgery Additional Past Surgical History / Comment(s): "bilat mastectomy, surgery rt kidney to remove kidney stone , geovanni shoulder rotator cuff Past Anesthesia/Blood Transfusion Reactions: No Reported Reaction Date of Last Stent Placement:: 2004 Past Psychological History: No Psychological Hx Reported Smoking Status: Current every day smoker Past Alcohol Use History: None Reported Additional Past Alcohol Use History / Comment(s): smokes < 1 PPD for past 50 yrs Past Drug Use History: None Reported - Past Family History Sister(s) Family Medical History: Cancer Father Family Medical History: Cancer Mother Family Medical History: Cancer Medications and Allergies Home Medications Medication Instructions Recorded Confirmed Type Tiotropium [place] [Spiriva] 1 cap INHALATION RT-DAILY 10/21/13 02/08/20 History Budesonide-Formot 160-4.5 Mcg 2 puff INHALATION RT-BID 06/14/16 02/08/20 History [Symbicort 160-4.5 Mcg Inhaler] Ergocalciferol [Vitamin D2] 100,000 unit PO Q30D 06/14/16 02/08/20 History Pregabalin [Lyrica] 75 mg PO BID 06/14/16 02/08/20 History Metoprolol Tartrate [Lopressor] 50 mg PO DAILY 11/24/16 02/08/20 History Albuterol Sulfate [Ventolin HFA] 1 - 2 puff INHALATION RT-QID PRN 02/08/20 02/08/20 History Atorvastatin [Lipitor] 80 mg PO DAILY 02/08/20 02/08/20 History Ibuprofen [Motrin] 800 mg PO QID PRN 02/08/20 02/08/20 History Metoprolol Tartrate [Lopressor] 25 mg PO HS 02/08/20 02/08/20 History Montelukast [Singulair] 10 mg PO DAILY 02/08/20 02/08/20 History Pantoprazole [Protonix] 40 mg PO DAILY 02/08/20 02/08/20 History diazePAM [Valium] 5 mg PO QID PRN 02/08/20 02/08/20 History rOPINIRole HCL [Requip] 2 mg PO BID 02/08/20 02/08/20 History Allergies Allergy/AdvReac Type Severity Reaction Status Date / Time No Known Allergies Allergy Verified 02/08/20 16:32 Surgical - Exam Vital Signs Temp Pulse Resp BP Pulse Ox 98.1 F 111 H 18 116/81 93 L 02/08/20 14:54 02/08/20 14:54 02/08/20 14:54 02/08/20 14:54 02/08/20 14:54 General appearance: The patient is alert, oriented, in no acute distress. HET: Head is normocephalic and atraumatic. Left facial and eye lid swelling. Neck: Supple without lymphadenopathy. Trachea midline. Heart: S1 S2. Regular rate and rhythm. Lungs: Clear to auscultation. Chest: Venous dilation on the anterior chest wall Abdomen: Soft, nontender, nondistended with bowel sounds. Extremities: Right upper extremity with swelling, no redness noted. Range of motion of bilateral upper extremities. No cyanosis, rash, ulceration, clubbing, or edema. Radial and pedal pulses are 2/4 bilaterally. Neurological: No focal deficits. Strength and sensation are grossly intact. Results CT angiogram chest significant thrombosis in the superior vena cava and there is a 2 cm mass anterior to the superior vena cava. There is thrombus seen in the left lower lobe pulmonary artery. There are 2 lesions in the left upper lobe consistent with a neoplasm. There is a lesion in the right upper lobe co nsistent with neoplasm there is a small nodule in the left lower lobe consistent with metastasis. ultrasound venous duplex of the right upper extremity showed no evidence of thrombosis. Venous ultrasound of bilateral lower extremities: No deep venous thrombosis of the bilateral lower extremities - Labs 02/09/20 04:54 02/08/20 20:34 Abnormal Lab Results - Last 24 Hours (Table) 02/08/20 02/08/20 02/08/20 Range/Units 20:34 20:34 20:34 Hct 46.2 H (34.0-46.0) % MCHC 30.9 L (31.0-37.0) g/dL APTT 48.3 H (22.0-30.0) sec Sodium 136 L (137-145) mmol/L Glucose 109 H (74-99) mg/dL 02/09/20 02/09/20 Range/Units 04:54 04:54 Hct 46.8 H (34.0-46.0) % MCHC (31.0-37.0) g/dL APTT 58.6 H (22.0-30.0) sec Sodium (137-145) mmol/L Glucose (74-99) mg/dL Diabetes panel 02/08/20 Range/Units 20:34 Sodium 136 L (137-145) mmol/L Potassium 4.0 (3.5-5.1) mmol/L Chloride 104 (98-107) mmol/L Carbon Dioxide 28 (22-30) mmol/L BUN 11 (7-17) mg/dL Creatinine 0.62 (0.52-1.04) mg/dL Glucose 109 H (74-99) mg/dL Calcium 9.1 (8.4-10.2) mg/dL AST 17 (14-36) U/L ALT 10 (4-34) U/L Alkaline Phosphatase 115 (38-126) U/L Total Protein 6.8 (6.3-8.2) g/dL Albumin 3.8 (3.5-5.0) g/dL Calcium panel 02/08/20 Range/Units 20:34 Calcium 9.1 (8.4-10.2) mg/dL Albumin 3.8 (3.5-5.0) g/dL Pituitary panel 02/08/20 Range/Units 20:34 Sodium 136 L (137-145) mmol/L Potassium 4.0 (3.5-5.1) mmol/L Chloride 104 (98-107) mmol/L Carbon Dioxide 28 (22-30) mmol/L BUN 11 (7-17) mg/dL Creatinine 0.62 (0.52-1.04) mg/dL Glucose 109 H (74-99) mg/dL Calcium 9.1 (8.4-10.2) mg/dL Adrenal panel 02/08/20 Range/Units 20:34 Sodium 136 L (137-145) mmol/L Potassium 4.0 (3.5-5.1) mmol/L Chloride 104 (98-107) mmol/L Carbon Dioxide 28 (22-30) mmol/L BUN 11 (7-17) mg/dL Creatinine 0.62 (0.52-1.04) mg/dL Glucose 109 H (74-99) mg/dL Calcium 9.1 (8.4-10.2) mg/dL Total Bilirubin 0.3 (0.2-1.3) mg/dL AST 17 (14-36) U/L ALT 10 (4-34) U/L Alkaline Phosphatase 115 (38-126) U/L Total Protein 6.8 (6.3-8.2) g/dL Albumin 3.8 (3.5-5.0) g/dL Assessment and Plan Assessment: 1. Thrombosis in the superior vena cava and in left lower lobe pulmonary artery 2. Left Sided facial swelling 2. Right upper extremity swelling 3. Pulmonary lesions in the left upper lobe and right upper lobe, and small nodule in the left lower lobe 4. History of breast cancer status post mastectomy, chemotherapy, radiation 5. Coronary artery disease 6. Hyperlipidemia 7. Hypertension 8. Tobacco abuse Plan: Patient was seen and examined with Dr. Werner. CT angiogram disc was sent down to the radiology for upload. Plan discussed with Dr. Yun. Appreciate recommendations per oncology. Venous Doppler ultrasound of bilateral lower extremities ordered. Agree with continued anticoagulation. Discussed importance of smoking cessation with patient. We will continue to follow. Thank you for this consultation and allowing us take part and plan of care of your patient during her hospital stay. The impression and plan of care has been dictated as directed. Dr. John I performed a history and examination of this patient, discussed the same with the dictator. I agree with the dictator's note ,documented as a scribe. Any additional findings or plans will be noted.
--- NOTE | 2020-02-09 15:18 | CT ---
EXAMINATION TYPE: CT abdomen pelvis w con DATE OF EXAM: 02/09/2020 COMPARISON: CT chest abdomen pelvis 06/26/2016. Outside institution 02/08/2020 CTA chest. HISTORY: hx breast ca face and arm swelling CT DLP: 1097 mGycm Automated exposure control for dose reduction was used. TECHNIQUE: Helical acquisition of images was performed from the lung bases through the pelvis. CONTRAST: Performed with Oral Contrast and with IV Contrast, patient injected with 100 mL of Isovue 370. FINDINGS: LUNG BASES: Bibasilar subsegmental atelectasis and/or scarring. No pleural or pericardial effusion. I ncompletely visualized hilar lymphadenopathy. LIVER: Multiple hepatic cysts redemonstrated from 06/26/2016 CT comparison. Scattered too small to jb racterize hypodense lesions. BILIARY SYSTEM: Normal. PANCREAS: Multiple tiny hypodense lesions likely represent interdigitated fat. No main pancreatic radha radha dilatation. SPLEEN: Normal. ADRENALS: Redemonstrated 1.0 cm nodule of the right adrenal gland, not significantly changed versus [address] comparison thickening of the medial limb of the left adrenal gland also appears similar to 201 7 comparison. KIDNEYS: Multiple redemonstrated renal cysts and too small to characterize hypodense lesions bilatera lly. Nonobstructing nephrolithiasis bilaterally measuring up to 2 mm on the right and punctate on the left. There is also redemonstrated right cortical calcification. BOWEL: No obstruction or thickening. Colonic diverticulosis. No acute diverticulitis. PERITONEUM: No pneumoperitoneum. No free fluid. LYMPH NODES: No lymphadenopathy. PELVIS: Normal urinary bladder. Status post hysterectomy. VASCULATURE: No abdominal aortic aneurysm. Somewhat tortuous course of the infrarenal abdominal aort a. Mild calcified and noncalcified atherosclerotic disease. There is right common iliac artery aneury sm measuring 1.7 cm. MUSCULOSKELETAL: No aggressive osseous destructive lesions. IMPRESSION: 1. No abdominopelvic metastatic breast cancer. 2. Incompletely visualized bilateral hilar lymphadenopathy of the chest. 3. Right common iliac artery aneurysm measures 1.7 cm. 4. Too small to characterize hepatic and renal hypodense lesion. 5. Thickening and nodularity of the bilateral adrenal gland is unchanged versus 2017 CT comparison.
--- NOTE | 2020-02-09 15:23 | NM ---
EXAMINATION TYPE: NM bone scan whole body DATE OF EXAM: 02/09/2020 COMPARISON: CT abdomen and pelvis 02/09/2020 HISTORY: 64-year-old female history of breast cancer. TECHNIQUE: Delayed whole-body scanning was performed following the injection of 23.2 mCi Tc 99m MDP. Images acquired 3 hours post injection. FINDINGS: There is some degenerative tracer activity suggested at the right first MTP joint of the foot and hin dfoot/ankle region. No suspicious distribution of tracer to suggest osseous metastatic disease. IMPRESSION: No scintigraphic evidence for osseous metastatic disease.
[2020-02-09] MEDS: SODIUM CHLORIDE 0.9% 1,000 ML IV SCH (16:45)
--- NOTE | 2020-02-09 18:15 | PN ---
PROGRESS NOTE DATE OF SERVICE: 02/09/2020 CHIEF COMPLAINT: Swelling of the right arm and the face. HISTORY OF PRESENT ILLNESS: This lady is stable. She has had no shortness of breath, pain, etc. PHYSICAL EXAMINATION: She still has some facial edema and swelling of the right arm. Chest demonstrates poor breath sounds throughout with scattered rales. Cardiac exam is normal. Abdomen is soft, nontender. IMPRESSION: 1. 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 2. History of carcinoma of the breast. 3. Chronic obstructive pulmonary disease. PLAN: Studies ordered. She will also be seen by Vascular Surgery and Oncology today. MMODL / IJN: [id number] /
[2020-02-09] MEDS: METOPROLOL TARTRATE 25 MG TAB PO SCH (20:56)
[2020-02-10 05:14] LABS: Basophils # (A) 0.1 k/uL (0-0.2); Basophils % (A) 1 %; Eosinophils # (A) 0.1 k/uL (0-0.7); Eosinophils % (A) 1 %; HCT 45.7 % (34.0-46.0); HGB 13.9 gm/dL (11.4-16.0); Hypochromasia Marked; Lymphocytes # (A) 1.5 k/uL (1.0-4.8); Lymphocytes % (A) 18 %; MCH 26.7 pg (25.0-35.0); MCHC 30.5 g/dL (31.0-37.0); MCV 87.6 fL (80.0-100.0); Mean Platelet Volume 7.6; Monocytes # (A) 0.5 k/uL (0-1.0); Monocytes % (A) 6 %; Neutrophils % (A) 73 %; Platelet Count 172 k/uL (150-450); RBC 5.22 m/uL (3.80-5.40); RDW 14.8 % (11.5-15.5); WBC 8.2 k/uL (3.8-10.6)
[2020-02-10] MEDS: HEPARIN SODIUM,PORCINE 5,000 UNIT/ML 1 ML VIAL IV PRN ×2 (05:51→21:43)
[2020-02-10] MEDS: IPRATROPIUM-ALBUTEROL 3 ML NEB INHALATION SCH ×4 (07:13→19:23)
[2020-02-10] MEDS: SYMBICORT 160-4.5 MCG INHALER INHALATION SCH ×2 (07:14→19:23)
[2020-02-10] MEDS: PANTOPRAZOLE 40 MG TABLET PO SCH (09:49)
[2020-02-10] MEDS: METOPROLOL TARTRATE 50 MG TAB PO SCH (09:49)
[2020-02-10] MEDS: NICOTINE 14MG/24HR PATCH TRANSDERM SCH (09:49)
[2020-02-10] MEDS: MONTELUKAST 10 MG TAB PO SCH (09:49)
[2020-02-10] MEDS: ATORVASTATIN 80 MG TAB PO SCH (09:50)
[2020-02-10] MEDS: PREGABALIN 75 MG CAP PO SCH ×2 (09:50→20:34)
--- NOTE | 2020-02-10 10:24 | P.PN ---
Subjective Progress Note Date: 02/10/20 Principal diagnosis: Pulmonary embolism In f/u pt states stable breathing, still experiencing some mild chest/lung discomfort with deep breaths, no bleeding to report on heparin drip. Objective - Vital Signs Vital signs: Vital Signs Temp 98.4 F 02/10/20 08:43 Pulse 83 02/10/20 08:43 Resp 16 02/10/20 08:43 BP 102/51 02/10/20 08:43 Pulse Ox 97 02/10/20 08:43 Intake & Output 02/09/20 02/10/20 02/10/20 18:59 06:59 18:59 Intake Total 949.032 425.552 Balance 949.032 425.552 Intake: Intake, IV Titration 239.032 425.552 Amount Heparin Sod,Pork in 0.45% 79.032 195.552 NaCl 25,000 unit In 0.45 % NaCl 1 250ml.bag @ 18 UNITS/KG/HR 11.594 mls/hr IV .[id number] BRIANA Rx#: [id number] Sodium Chloride 0.9% 1, 160 230 000 ml @ 20 mls/hr IV . Q24H BRIANA Rx#:[id number] Oral 710 Other: Voiding Method Toilet # Voids 3 1 # Bowel Movements 1 - Constitutional General appearance: Present: average body habitus, cooperative, no acute d istress - EENT Eyes: Present: anicteric sclerae, EOMI ENT: Present: hearing grossly normal - Respiratory Respiratory: bilateral: CTA - Cardiovascular Heart sounds: normal: S1, S2 - Peripheral edema leg Peripheral Edema: bilateral: None - Gastrointestinal General gastrointestinal: Present: soft - Neurologic Neurologic: Present: CNII-XII intact - Musculoskeletal Musculoskeletal: Present: strength equal bilaterally - Psychiatric Psychiatric: Present: A&O x's 3, appropriate affect, intact judgment & insight - Labs CBC & Chem 7: 02/10/20 04:33 02/08/20 20:34 Labs: Abnormal Lab Results - Last 24 Hours (Table) 02/10/20 Range/Units 04:33 MCHC 30.5 L (31.0-37.0) g/dL - Imaging and Cardiology CT scan - abdomen: report reviewed CT scan - pelvis: report reviewed NM bone scan report reviewed Assessment and Plan (1) Pulmonary embolism Narrative/Plan: Dr. Yun discussed case with Dr. Catherine. Plan is to keep pt on heparin drip until biopsy complete-for least amt of time off anticoagulation for invasive procedure. Will start oral anticoagulation post procedure Current Visit: Yes Status: Acute Priority: High Code(s): I26.99 - OTHER PULMONARY EMBOLISM WITHOUT ACUTE COR PULMONALE SNOMED Code(s): 08771874 (2) Mass of left lung Narrative/Plan: Concerning as pt has malignancy Hx and new PE. CT AP and NM bone scan shows no other disease. IR consulted to review image showing EBONIE mass to see if amenable to biopsy. If not, will consult Pulmonary to review case for biopsy. Pt verbalized understanding the plan Current Visit: Yes Status: Acute Priority: High Code(s): R91.8 - OTHER NONSPECIFIC ABNORMAL FINDING OF LUNG FIELD SNOMED Code(s): 382901976 (3) HX: breast cancer Narrative/Plan: Breast tumor markers are WNL. Pending biopsy of lung mass. Current Visit: Yes Status: Chronic Priority: Medium Code(s): Z85.3 - PERSONAL HISTORY OF MALIGNANT NEOPLASM OF BREAST SNOMED Code(s): 403061143 Plan: Doctor attests: I performed a history and physical examination of this patient, developed impression and plan of care. Discussed with dictator. I agree with dictators note, documented as a scribe.
[2020-02-10 12:18] LABS: INR 1.1 (<1.2)
[2020-02-10 12:20] LABS: Partial Thromboplastin Time 122.2 sec (22.0-30.0)
--- NOTE | 2020-02-10 12:52 | P.PN ---
Subjective Progress Note Date: 02/10/20 Principal diagnosis: Pulmonary Embolism, thrombus in the superior vena cava Patient seen at the bedside with Dr. Mckeon. She denies any acute changes through the night. She denies any shortness of breath or chest pain. She does state that she had more venous well dilation in her lower chest wall. She denies any pain in her right upper extremity. She states she has full range of motion of bilateral upper extremities. She she feels like her left facial swelling is improving. Oncology is on consult, likely patient will have biopsy of pulmonary lesion. Objective - Vital Signs Vital signs: Vital Signs Temp 98.4 F 02/10/20 08:43 Pulse 83 02/10/20 08:43 Resp 16 02/10/20 08:43 BP 102/51 02/10/20 08:43 Pulse Ox 97 02/10/20 08:43 Intake & Output 02/09/20 02/10/20 02/10/20 18:59 06:59 18:59 Intake Total 949.032 425.552 Balance 949.032 425.552 Intake: Intake, IV Titration 239.032 425.552 Amount Heparin Sod,Pork in 0.45% 79.032 195.552 NaCl 25,000 unit In 0.45 % NaCl 1 250ml.bag @ 18 UNITS/KG/HR 11.594 mls/hr IV .[id number] BRIANA Rx#: [id number] Sodium Chloride 0.9% 1, 160 230 000 ml @ 20 mls/hr IV . Q24H BRIANA Rx#:[id number] Oral 710 Other: Voiding Method Toilet # Voids 3 1 # Bowel Movements 1 - Exam General appearance: The patient is alert, oriented, in no acute distress. HET: Head is normocephalic and atraumatic. Left-sided facial swelling. Neck: Supple without lymphadenopathy. Trachea midline. Heart: S1 S2. Regular rate and rhythm. Lungs: No crackles or wheezes are heard. Chest : Venous dilation on anterior upper and lower chest wall. Abdomen: Soft, nontender, nondistended with bowel sounds. No peritoneal signs. No palpable organomegaly or masses. Extremities: Right upper extremity swelling, no redness noted. Radial and pedal pulses are 2/4 bilaterally. Full range of motion of bilateral upper ext remities. Neurological: No focal deficits. Strength and sensation are grossly intact. - Labs CBC & Chem 7: 02/10/20 04:33 02/08/20 20:34 Labs: Abnormal Lab Results - Last 24 Hours (Table) 02/10/20 Range/Units 04:33 MCHC 30.5 L (31.0-37.0) g/dL Assessment and Plan Assessment: 1. Thrombosis in the superior vena cava and in left lower lobe pulmonary artery 2. Left Sided facial swelling 2. Right upper extremity swelling 3. Pulmonary lesions in the left upper lobe and right upper lobe, and small nodule in the left lower lobe 4. History of breast cancer status post mastectomy, chemotherapy, radiation 5. Coronary artery disease 6. Hyperlipidemia 7. Hypertension 8. Tobacco abuse Plan: Patient was seen and examined with Dr. Mckeon. CT angiogram disc was sent down to the radiology for upload. Dr. mckeon reviewed. Plan discussed with Dr. Yun. Appreciate recommendations per oncology. Venous Doppler ultrasound of bilateral lower extremities ordered, results negative for DVT. Agree with continued anticoagulation, continue with heparin gtt until after biopsy. Transition to oral coagulation per oncology/hematology recommendations. Discussed importance of smoking cessation with patient. We will continue to follow. The impression and plan of care has been dictated as directed. Dr. Mckeon I performed a history and examination of this patient, discussed the same with the dictator. I agree with the dictator's note ,documented as a scribe. Any additional findings or plans will be noted.
[2020-02-10] MEDS: HEPARIN SOD,PORK IN 0.45% NACL 25,000 UNIT in 0.45% NACL 1 250ML.BAG IV SCH (14:22)
[2020-02-10] MEDS: SODIUM CHLORIDE 0.9% 1,000 ML IV SCH (14:26)
--- NOTE | 2020-02-10 18:19 | PN ---
PROGRESS NOTE CHIEF COMPLAINT: Superior vena cava syndrome. HISTORY OF PRESENT ILLNESS: This lady is getting more superficial venule dilatation in the chest and abdomen. She is not having any chest pain, headache, increase in shortness of breath, etc. PHYSICAL EXAMINATION: Breath sounds are extremely poor throughout. Cardiac exam demonstrates tachycardia. Abdomen is soft and nontender. Face is more edematous and slightly cyanotic. Cardiac exam is normal. Abdomen is soft, nontender. Extremities are normal except for the right arm. 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 PLAN: Continue with anticoagulation while further studies are done. MMODL / IJN: [id number] /
[2020-02-10] MEDS: METOPROLOL TARTRATE 25 MG TAB PO SCH (20:33)
[2020-02-11 04:51] LABS: Basophils # (A) 0.1 k/uL (0-0.2); Basophils % (A) 1 %; Eosinophils # (A) 0.1 k/uL (0-0.7); Eosinophils % (A) 2 %; HGB 13.7 gm/dL (11.4-16.0); Hypochromasia Moderate; Lymphocytes # (A) 1.5 k/uL (1.0-4.8); Lymphocytes % (A) 19 %; MCH 27.1 pg (25.0-35.0); MCHC 31.2 g/dL (31.0-37.0); MCV 86.9 fL (80.0-100.0); Mean Platelet Volume 8.1; Monocytes # (A) 0.5 k/uL (0-1.0); Monocytes % (A) 7 %; Neutrophils # (A) 5.4 k/uL (1.3-7.7); Neutrophils % (A) 70 %; RBC 5.07 m/uL (3.80-5.40); RDW 14.8 % (11.5-15.5); WBC 7.8 k/uL (3.8-10.6)
[2020-02-11 05:59] LABS: Anisocytosis (M) Present
[2020-02-11 06:00] LABS: Large Platelets Present; Platelet Count 92 k/uL (150-450)
[2020-02-11] MEDS: IPRATROPIUM-ALBUTEROL 3 ML NEB INHALATION SCH ×4 (07:43→20:32)
[2020-02-11] MEDS: SYMBICORT 160-4.5 MCG INHALER INHALATION SCH ×2 (07:58→20:32)
[2020-02-11] MEDS: NICOTINE 14MG/24HR PATCH TRANSDERM SCH (08:20)
[2020-02-11] MEDS: PREGABALIN 75 MG CAP PO SCH ×2 (08:20→20:34)
[2020-02-11] MEDS: PANTOPRAZOLE 40 MG TABLET PO SCH (08:20)
[2020-02-11] MEDS: MONTELUKAST 10 MG TAB PO SCH (08:20)
[2020-02-11] MEDS: ATORVASTATIN 80 MG TAB PO SCH (08:20)
[2020-02-11] MEDS: METOPROLOL TARTRATE 50 MG TAB PO SCH (08:20)
--- NOTE | 2020-02-11 12:37 | P.PN ---
Subjective Progress Note Date: 02/11/20 Principal diagnosis: Pulmonary Embolism, thrombus in the superior vena cava Was seen and examined at the bedside. She denies any acute changes through the night. She denies any shortness of breath or chest pain. This morning she underwent biopsy of pulmonary lesion. She remains on a heparin drip at this time. She is being followed by hematology/oncology who will be transitioning patient from heparin drip to oral anticoagulation. She denies any pain in her right upper extremity. She has continued full range of motion of bilateral upper extremities. Objective - Vital Signs Vital signs: Vital Signs Temp 98.0 F 02/11/20 11:22 Pulse 73 02/11/20 11:44 Resp 18 02/11/20 11:22 BP 105/52 02/11/20 11:22 Pulse Ox 95 02/11/20 11:22 Intake & Output 02/10/20 02/11/20 02/11/20 18:59 06:59 18:59 Intake Total 54.448 1001.290 Balance 54.448 1001.290 Intake: Intake, IV Titration 54.448 401.290 Amount Heparin Sod,Pork in 0.45% 54.448 201.290 NaCl 25,000 unit In 0.45 % NaCl 1 250ml.bag @ 18 UNITS/KG/HR 11.594 mls/hr IV .[id number] BRIANA Rx#: [id number] Sodium Chloride 0.9% 1, 200 000 ml @ 20 mls/hr IV . Q24H BRIANA Rx#:[id number] Oral 600 Other: Voiding Method Toilet Toilet Toilet # Voids 4 1 - Exam General appearance: The patient is alert, oriented, in no acute distress. HET: Head is normocephalic and atraumatic. Left-sided facial swelling. Neck: Supple without lymphadenopathy. Trachea midline. Heart: S1 S2. Regular rate and rhythm. Lungs: No crackles or wheezes are heard. Chest : Venous dilation on anterior upper and lower chest wall. Abdomen: Soft, nontender, nondistended with bowel sounds. No peritoneal signs. No palpable organomegaly or masses. Extremities: Right upper extremity swelling, no redness noted. Radial and pedal pulses are 2/4 bilaterally. Full range of motion of bilateral upper extremities. Neurological: No focal deficits. Strength and sensation are grossly intact. - Labs CBC & Chem 7: 02/11/20 11:44 02/08/20 20:34 Labs: Abnormal Lab Results - Last 24 Hours (Table) 02/10/20 02/11/20 02/11/20 Range/Units 20:33 04:35 04:35 Plt Count 92 L (150-450) k/uL APTT 31.5 H 93.3 H (22.0-30.0) sec Assessment and Plan Assessment: 1. Thrombosis in the superior vena cava and in left lower lobe pulmonary artery 2. Left Sided facial swelling 2. Right upper extremity swelling 3. Pulmonary lesions in the left upper lobe and right upper lobe, and small nodule in the left lower lobe 4. History of breast cancer status post mastectomy, chemotherapy, radiation 5. Coronary artery disease 6. Hyperlipidemia 7. Hypertension 8. Tobacco abuse Plan: CT angiogram disc was sent down to the radiology for upload. Dr. mckeon reviewed. Plan discussed with Dr. Yun. Appreciate recommendations per oncology. Venous Doppler ultrasound of bilateral lower extremities ordered, results negative for DVT. Agree with continued anticoagulation, continue with heparin gtt until after biopsy. Transition to oral coagulation per oncology/hematology recommendations. Discussed importance of smoking cessation with patient. We will sign off at this time. Patient to follow up with hematology and primary care physician. The impression and plan of care has been dictated as directed. Dr. Goddard I performed a history and examination of this patient, discussed the same with the dictator. I agree with the dictator's note ,documented as a scribe. Any additional findings or plans will be noted.
[2020-02-11 12:41] LABS: HCT 44.7 % (34.0-46.0); HGB 13.5 gm/dL (11.4-16.0); Hypochromasia Moderate; MCH 26.3 pg (25.0-35.0); MCHC 30.3 g/dL (31.0-37.0); MCV 86.9 fL (80.0-100.0); Mean Platelet Volume 7.6; RBC 5.14 m/uL (3.80-5.40); RDW 14.8 % (11.5-15.5); WBC 8.2 k/uL (3.8-10.6)
[2020-02-11 12:43] LABS: Platelet Count 204 k/uL (150-450)
--- NOTE | 2020-02-11 13:25 | XR ---
EXAMINATION TYPE: XR chest 1V portable DATE OF EXAM: 02/11/2020 CLINICAL HISTORY: Recent lung biopsy. TECHNIQUE: Single AP portable upright view of the chest is obtained. COMPARISON: Outside side chest CT February 08, 2020 FINDINGS: Background chronic emphysematous change. Mass adjacent to aortic knob redemonstrated. Smal ler nodule lateral right mid to lower lung again seen. No pneumothorax noted bilaterally. Right-sided volume loss with mediastinal shift is redemonstrated. Osseous structures are demineralized. Bilatera l hilar prominence consistent with underlying pulmonary hypertension. Right paratracheal thickness co rresponds to enlarged partially thrombosed SVC. Left axillary surgical clip noted. IMPRESSION: No pneumothorax after lung biopsy.
--- NOTE | 2020-02-11 13:51 | CT ---
EXAMINATION TYPE: CT biopsy lung LT DATE OF EXAM: 02/11/2020 HISTORY: History of breast cancer. Lung masses. COMPARISON: CT abdomen pelvis 02/09/2020. Outside institution CTA chest 02/08/2020. Informed consent was obtained by Dr. Afia Keenan prior to procedure. Preliminary CT imaging redemonstrated dominant pulmonary masses/nodules within the left upper lobe. T he skin overlying a suitable path to the left upper lobe anterior lesion was localized using CT and t he overlying skin was prepped and draped utilizing maximal barrier technique. Lidocaine used for loca l anesthesia. A small skin barbie was made with a scalpel. Using CT guidance, access was gained to the lesion with a 19-gauge introducer needle. The stylet was removed and a biopsy was obtained with a 20- gauge coaxial core biopsy needle. This was repeated for a total of 2 specimens. Core specimen(s) subm itted in formalin for histopathology. All needles were removed and sterile bandage was applied. Postprocedure CT imaging demonstrated trace left pneumothorax and minimal perilesional hemorrhage. Lester paige tolerated procedure well with no immediate complications. Patient is discharged from the radiol ogy department in stable condition back to the patient floor. IMPRESSION: 1. Successful CT-guided left upper lobe lung mass 20-gauge core biopsy. Pathology pending. 2. Trace left pneumothorax status post biopsy.
[2020-02-11] MEDS ORDERED: HEPARIN SODIUM,PORCINE 5,000 UNIT/ML 1 ML VIAL IV PRN (14:47)
[2020-02-11] MEDS: HEPARIN SODIUM,PORCINE 5,000 UNIT/ML 1 ML VIAL IV PRN (14:58)
[2020-02-11] MEDS: HEPARIN SOD,PORK IN 0.45% NACL 25,000 UNIT in 0.45% NACL 1 250ML.BAG IV SCH ×2 (15:01→20:28)
[2020-02-11] MEDS: SODIUM CHLORIDE 0.9% 1,000 ML IV SCH (15:02)
--- NOTE | 2020-02-11 18:29 | PN ---
PROGRESS NOTE DATE OF SERVICE: 02/11/2020 CHIEF COMPLAINT: Shortness of breath, edema of the right arm and facial edema. HISTORY OF PRESENT ILLNESS: This lady is doing fairly well, but she is still experiencing more and more facial edema and cyanosis as well as still dilatation of small venules in the anterior chest. PHYSICAL EXAMINATION: Breath sounds are diminished. Cardiac exam demonstrates sinus tachycardia. Abdomen is soft, nontender. IMPRESSION: 1. Superior vena cava syndrome. 2. History of carcinoma of the breast. 3. Probable carcinoma of the lung in the right upper lobe. PLAN: She is going for biopsies today and then we will make a further determination as to what her treatment will be. MMODL / IJN: [id number] /
[2020-02-11] MEDS: METOPROLOL TARTRATE 25 MG TAB PO SCH (20:34)
[2020-02-12] MEDS: NICOTINE 14MG/24HR PATCH TRANSDERM SCH (07:35)
[2020-02-12] MEDS: METOPROLOL TARTRATE 50 MG TAB PO SCH (07:36)
[2020-02-12] MEDS: MONTELUKAST 10 MG TAB PO SCH (07:36)
[2020-02-12] MEDS: PANTOPRAZOLE 40 MG TABLET PO SCH (07:37)
[2020-02-12] MEDS: ATORVASTATIN 80 MG TAB PO SCH (07:37)
[2020-02-12] MEDS: PREGABALIN 75 MG CAP PO SCH ×2 (07:37→20:13)
[2020-02-12] MEDS: SYMBICORT 160-4.5 MCG INHALER INHALATION SCH ×2 (07:43→20:40)
[2020-02-12] MEDS: IPRATROPIUM-ALBUTEROL 3 ML NEB INHALATION SCH ×4 (07:43→20:47)
--- NOTE | 2020-02-12 17:29 | P.PN ---
Subjective Progress Note Date: 02/12/20 Principal diagnosis: Pulmonary embolism In f/u pt states stable breathing, swelling in neck, face and arm is irritating, no [place], no bleeding or bruising post percuataneous lung biopsy. Objective - Vital Signs Vital signs: Vital Signs Temp 98.0 F 02/12/20 12:09 Pulse 88 02/12/20 15:41 Resp 17 02/12/20 12:09 BP 110/60 02/12/20 12:09 Pulse Ox 90 L 02/12/20 12:09 Intake & Output 02/11/20 02/12/20 02/12/20 18:59 06:59 18:59 Intake Total 760 880.014 458.696 Balance 760 880.014 458.696 Intake: Intake, IV Titration 160 280.014 218.696 Amount Heparin Sod,Pork in 0.45% 0 80.014 218.696 NaCl 25,000 unit In 0.45 % NaCl 1 250ml.bag @ 18 UNITS/KG/HR 11.594 mls/hr IV .[id number] BRIANA Rx#: [id number] Sodium Chloride 0.9% 1, 160 200 000 ml @ 20 mls/hr IV . Q24H BRIANA Rx#:[id number] Oral 600 600 240 Other: Voiding Method Toilet Toilet Toilet # Voids 2 1 2 - Constitutional General appearance: Present: average body habitus, cooperative - EENT EENT Comment(s): Neck, face swelling, periorbital edema Eyes: Present: EOMI ENT: Present: hearing grossly normal - Respiratory Respiratory: bilateral: CTA - Cardiovascular Heart sounds: normal: S1, S2 - Gastrointestinal General gastrointestinal: Present: normal bowel sounds, soft - Neurologic Neurologic: Present: CNII-XII intact - Musculoskeletal Musculoskeletal: Present: strength equal bilaterally - Psychiatric Psychiatric: Present: A&O x's 3, appropriate affect, intact judgment & insight - Labs CBC & Chem 7: 02/11/20 11:44 02/08/20 20:34 Labs: Abnormal Lab Results - Last 24 Hours (Table) 02/11/20 02/12/20 02/12/20 Range/Units 21:22 06:30 16:07 APTT >200.0 H* 105.3 H* 74.0 H (22.0-30.0) sec Assessment and Plan (1) Pulmonary embolism Narrative/Plan: Procedures completed. No evidence of post procedure hemorrhage. Start DOAC tonight, turn off hep drip when 1st dose gived. Reviewed with RN. Video Software Engineer has Rx for DOAC completed with cost acceptable to pt. Current Visit: Yes Status: Acute Priority: High Code(s): I26.99 - OTHER PULMONARY EMBOLISM WITHOUT ACUTE COR PULMONALE SNOMED Code(s): 75850832 (2) Mass of left lung Narrative/Plan: Concerning as pt has malignancy Hx and new PE. CT AP and NM bone scan shows no other disease. IR performed percutaneous bx, pending path Current Visit: Yes Status: Acute Priority: High Code(s): R91.8 - OTHER NONSPECIFIC ABNORMAL FINDING OF LUNG FIELD SNOMED Code(s): 824216867 (3) HX: breast cancer Narrative/Plan: Breast tumor markers are WNL. Pending biopsy of lung mass. Current Visit: Yes Status: Chronic Priority: Medium Code(s): Z85.3 - PERSONAL HISTORY OF MALIGNANT NEOPLASM OF BREAST SNOMED Code(s): 816086028 Plan: planning for lymphedema care outpatient
[2020-02-12] MEDS: SODIUM CHLORIDE 0.9% 1,000 ML IV SCH (20:13)
[2020-02-12] MEDS: METOPROLOL TARTRATE 25 MG TAB PO SCH (20:13)
[2020-02-12] MEDS: APIXABAN 5 MG TAB PO SCH (20:13)
[2020-02-13 07:14] VITALS: RESP 16
[2020-02-13] MEDS: IPRATROPIUM-ALBUTEROL 3 ML NEB INHALATION SCH ×3 (07:37→15:45)
[2020-02-13] MEDS: SYMBICORT 160-4.5 MCG INHALER INHALATION SCH (07:37)
[2020-02-13] MEDS: PANTOPRAZOLE 40 MG TABLET PO SCH (08:56)
[2020-02-13] MEDS: METOPROLOL TARTRATE 50 MG TAB PO SCH (08:56)
[2020-02-13] MEDS: MONTELUKAST 10 MG TAB PO SCH (08:56)
[2020-02-13] MEDS: APIXABAN 5 MG TAB PO SCH (08:56)
[2020-02-13] MEDS: ATORVASTATIN 80 MG TAB PO SCH (08:56)
[2020-02-13] MEDS: PREGABALIN 75 MG CAP PO SCH (08:56)
[2020-02-13 11:10] VITALS: BP 103/48; TEMP 97.6
--- NOTE | 2020-02-13 14:01 | P.PN ---
Subjective Progress Note Date: 02/13/20 Principal diagnosis: Lung mass and PE Path is still pending. We will set Angela up to see Dr. Jara next week regarding follow-up on lung mass pathology Objective - Vital Signs Vital signs: Vital Signs Temp 97.6 F 02/13/20 11:09 Pulse 76 02/13/20 11:11 Resp 16 02/13/20 11:09 BP 103/48 02/13/20 11:09 Pulse Ox 95 02/13/20 11:09 Intake & Output 02/12/20 02/13/20 02/13/20 18:59 06:59 18:59 Intake Total 736.812 4387 520 Balance 651.518 7978 520 Intake: Intake, IV Titration 218.696 220 160 Amount Heparin Sod,Pork in 0.45% 218.696 NaCl 25,000 unit In 0.45 % NaCl 1 250ml.bag @ 18 UNITS/KG/HR 11.594 mls/hr IV .[id number] BRIANA Rx#: [id number] Sodium Chloride 0.9% 1, 220 160 000 ml @ 20 mls/hr IV . Q24H BRIANA Rx#:[id number] Oral 240 800 360 Other: Voiding Method Toilet Toilet Toilet # Voids 2 2 4 - Exam - Constitutional General appearance: Present: average body habitus, cooperative - EENT EENT Comment(s): Neck, face swelling, periorbital edema Eyes: Present: EOMI ENT: Present: hearing grossly normal - Respiratory Respiratory: bilateral: CTA - Cardiovascular Heart sounds: normal: S1, S2 - Gastrointestinal General gastrointestinal: Present: normal bowel sounds, soft - Neurologic Neurologic: Present: CNII-XII intact - Musculoskeletal Musculoskeletal: Present: strength equal bilaterally - Psychiatric Psychiatric: Present: A&O x's 3, appropriate affect, intact judgment & insight - Labs CBC & Chem 7: 02/11/20 11:44 02/08/20 20:34 Labs: Abnormal Lab Results - Last 24 Hours (Table) 02/12/20 Range/Units 16:07 APTT 74.0 H (22.0-30.0) sec Assessment and Plan Plan: Acute DVT and PE: Discharge on Eliquis as prescribed. - Work-up for occult malignancy bone scan and CT abdomen and pelvis HX: Breast Cancer: - Diagnostics and therapeutics described in detail in HPI - CT abdomen and pelvis and Bone Scan neg Active Smoker: - Cessation advised Lung Mass EBONIE: - With active smoking and history of breast cancer biopsy needed - Path is pending Plan for DISPO: - Follow-up asked by our front staff to be made with Dr. Jara next week for review of pathology
[2020-02-13 14:27] VITALS: BMI 26.8
[2020-02-13] MEDS: NICOTINE 14MG/24HR PATCH TRANSDERM SCH (15:44)
[2020-02-13] MEDS: SODIUM CHLORIDE 0.9% 1,000 ML IV SCH (15:44)
[2020-02-13 15:54] VITALS: PULSE 76
--- NOTE | 2020-02-14 15:31 | PN ---
PROGRESS NOTE DATE OF SERVICE: 02/12/2020 CHIEF COMPLAINT: Superior vena cava syndrome and right upper lobe lung mass. HISTORY OF PRESENT ILLNESS: This lady is fairly stable but she continues to have significant edema of the right arm, face, head, and she is awaiting results of her biopsy. PHYSICAL EXAMINATION: Breath sounds are diminished throughout. Cardiac exam is normal. She has increasing edema of the face. IMPRESSIONS: 1. Superior vena cava syndrome. 2. Thrombosis in the superior vena cava. 3. Pulmonary embolism in the left lower lobe. 4. Chronic obstructive pulmonary disease. 5. Probable carcinoma of the lung. 6. History of carcinoma of the breast. PLAN: Await results of biopsy and continue anticoagulation until she can be discharged. MMODL / IJN: [id number] /
--- NOTE | 2020-02-14 15:49 | DS ---
DISCHARGE SUMMARY CHIEF COMPLAINT: Swelling in the right arm. HISTORY OF PRESENT ILLNESS AND PHYSICAL EXAMINATION: Details of this lady's history and physical can be found in the initial workup. LABORATORY STUDIES: While she was in the hospital, she had laboratory studies, details of which can be found in the laboratory section of her chart. COURSE IN THE HOSPITAL: After admission, she was placed on bedrest, started on intravenous fluids and worked up for a left lower lobe pulmonary embolism and superior vena cava thrombosis. She was found to have a mass in the right lung. She was anticoagulated. She was seen by Oncology and she eventually went for a needle biopsy of the mass. Postoperatively, she did well and while waiting for the results, it was felt she could be discharged. She will go home on February 12 with diet and activity as tolerated and she will be anticoagulated. She will be followed by home care with [facility] and she will be seen in the office in several days. FINAL DIAGNOSES: 1. Edema of the right arm. 2. Left lower lobe pulmonary embolism. 3. Superior vena cava thrombus and vena cava syndrome. 4. Chronic obstructive pulmonary disease. 5. Probable CA of the right upper lobe. 6. History of carcinoma of breast. OPERATIONS: Fine-needle aspirate, biopsy of the right lung mass. CONSULTATIONS: Oncology and Vascular Surgery. MMODL / IJN: [id number] /
--- NOTE | 2020-02-16 06:09 | CDI ---
Documentation Clarification Form Date: 02/16/2020 06:00:00 AM From: Kym Alicea Phone: If you have a question about this query, please contact Elke Graves Molder Fitting at [phone] between 8am and 5pm. Admit Date: 02/08/2020 03:20:00 PM Patient Name: Angela Dickerson Visit Number: [id number] Discharge Date: 02/13/2020 04:26:00 PM ATTENTION: The Clinical Documentation Specialists (CDI) and [facility] Coding Staff appreciate your assistance in clarifying documentation. Please respond to the clarification below the line at the bottom and electronically sign. The CDI & [facility] Coding staff will review the response and follow-up if needed. Please note: Queries are made part of the Legal Health Record. If you have any questions, please contact the author of this message via ITS. Dr. Evelio Catherine Conflicting documentation has been found in the medical record: CT biopsy of lung and Path report document left upper lobe mass with positive for malignancy. DCS documents Probably CA of the Right upper lobe. Please clarify if patient has Left upper lobe CA or Right upper lobe CA or bilateral. History/Risk Factors: Patient with PE and DVT Treatment: Biopsy Left Upper Lobe In your opinion, what is the most clinically appropriate diagnosis for this patient? Left upper lobe CA Right Upper Lobe CA Bilateral lobes CA Other explanation of clinical findings Unable to determine (no explanation for clinical findings) MTDD
--- NOTE | 2020-02-16 12:28 | MISC ---
MISCELLANOUS REPORT IMPRESSION: Right upper lobe carcinoma. MMODL / IJN: [id number] /
== END 2020-02-13 16:26 | disposition home health service (06) | DRG 299 ==
LOC: EC 14:50 → 6NMEDSUR 15:20
PROVIDERS: ADMIT Family Medicine; ATTEND Family Medicine
PROC: 0BBG3ZX Excision of Left Upper Lung Lobe, Percutaneous Approach, Diagnostic (ICD-10-PCS; principal; 2020-02-11)
DX: I82.210 Acute embolism and thrombosis of superior vena cava (principal); I26.99 Other pulmonary embolism without acute cor pulmonale; C34.11 Malignant neoplasm of upper lobe, right bronchus or lung; I87.1 Compression of vein; E78.5 Hyperlipidemia, unspecified; F17.210 Nicotine dependence, cigarettes, uncomplicated; I10 Essential (primary) hypertension; I25.10 Atherosclerotic heart disease of native coronary artery without angina pectoris; I25.2 Old myocardial infarction; I82.B11 Acute embolism and thrombosis of right subclavian vein; J44.9 Chronic obstructive pulmonary disease, unspecified; Z71.6 Tobacco abuse counseling; Z79.51 Long term (current) use of inhaled steroids; Z79.82 Long term (current) use of aspirin; Z79.899 Other long term (current) drug therapy; Z85.118 Personal history of other malignant neoplasm of bronchus and lung; Z85.3 Personal history of malignant neoplasm of breast; Z87.442 Personal history of urinary calculi; Z90.13 Acquired absence of bilateral breasts and nipples; Z90.710 Acquired absence of both cervix and uterus; Z92.21 Personal history of antineoplastic chemotherapy; Z92.3 Personal history of irradiation; Z87.01 Personal history of pneumonia (recurrent); Z80.9 Family history of malignant neoplasm, unspecified
CPT/HCPCS: 71045; 74177; 77012; 78306; 80053; 85025; 85027; 85610; 85730; 86300; 88305; 88341; 88342; 93970; 94640; 94760; 96365; 99285

== ENCOUNTER → 2020-02-20 | Outpatient (CLI) | payer MEDICARE ==
--- NOTE | 2020-02-20 16:33 | PE ---
Nuclear medicine PET/CT HISTORY: Lung carcinoma, initial Patient received 13.8 mCi F-18 FDG intravenously in delayed scanning was performed from skull base to the mid thighs. Localization and attenuation correction CT scan was performed. Correlation to chest CT 02/08/2020, abdomen pelvis CT 02/09/2020 Chest and neck: There is no cervical or supraclavicular adenopathy. Left upper lobe lung mass adheren t to the proximal descending aorta shows associated hypermetabolic uptake. The left upper lobe mass a dherent to the mediastinum anteriorly also shows hypermetabolic uptake. Right upper lobe lung mass ad jacent to the fissure shows associated uptake. There is right hilar uptake. Uptake is present within the large soft tissue mass adjacent and causing additional mass effect on the superior vena cava. The re is apparent erosion into the superior vena cava seen on CT. Retrocaval pretracheal node also shows uptake. Some mild uptake smaller mass in the left upper lobe, axial image #2. There is no pleural pe ricardial effusion. ABDOMEN: There is no evident adrenal mass. No suspicious liver mass or retroperitoneal adenopathy. Ex tensive diverticular change in the sigmoid colon. No free fluid. Osseous structures show no suspicious uptake. Uptake at the level of the proximal lower extremity mus culature is likely physiologic. IMPRESSION: Metastatic disease.
== END | disposition home or self-care (01) ==
LOC: RADPETMAIN 11:34
PROVIDERS: ATTEND Internal Medicine Hematology & Oncology
DX: C79.9 Secondary malignant neoplasm of unspecified site (principal)
CPT/HCPCS: 78815; A9552

== ENCOUNTER → 2020-02-26 | Outpatient (CLI) | payer MEDICARE ==
--- NOTE | 2020-02-26 12:02 | MR ---
EXAMINATION TYPE: MR brain wo/w con DATE OF EXAM: 02/26/2020 COMPARISON: None HISTORY: Metastatic breast ca TECHNIQUE: Multiplanar, multisequence images of the brain and brainstem is performed without and with IV contras t, utilizing 6.5 mL intravenous Gadavist . FINDINGS: Exam severely limited due to motion artifact. Diffusion weighted images demonstrate no evidence of a recent infarct or other diffusion abnormality. The ventricular system and cisternal spaces are normal in size and appearance. The brain volume is age appropriate. Midline structures demonstrate normal morphology. The craniocervical junction appears within normal limits. Post contrast images demonstrate no abnormal enhancement. The dural venous sinuses appear pa tent. Changes of chronic sinusitis and mastoiditis. There are multiple low-density lesions in the white matter on FLAIR imaging are nonspecific but likel y in the basis of remote microvascular ischemia. No enhancing lesions. Abnormal signal involving the brainstem suggest remote ischemia. IMPRESSION: 1. Limited exam due to severe motion artifact demonstrates no definite intracranial enhancing lesions . 2. Degenerative and nonspecific white matter changes most typical of remote microvascular ischemia.
== END | disposition home or self-care (01) ==
LOC: RADMRIMAIN 10:01
PROVIDERS: ATTEND Radiology Radiation Oncology
DX: R90.82 White matter disease, unspecified (principal); I67.82 Cerebral ischemia; C34.12 Malignant neoplasm of upper lobe, left bronchus or lung
CPT/HCPCS: 70553; A9585

== ENCOUNTER → 2020-05-11 | Outpatient (CLI) | payer MEDICARE ==
[2020-05-11 10:40] LABS: African American GFR (CKD) >90 (>60 ml/min/1.73 sqM); Blood Urea Nitrogen 9 mg/dL (7-17); Non-African American GFR(CKD) >90 (>60 ml/min/1.73 sqM)
--- NOTE | 2020-05-11 16:10 | CT ---
EXAMINATION TYPE: CT chest w con DATE OF EXAM: 05/11/2020 COMPARISON: CT 02/08/2020 from outside institution, CT biopsy 02/11/2020 HISTORY: Lung cancer CT DLP: 379 mGycm Automated exposure control for dose reduction was used. CONTRAST: CT scan of the chest is performed with IV Contrast, patient injected with 100 ml mL of Isovue 370. FINDINGS: LUNGS: The previous identified mass in the right upper lobe abutting the mediastinum anteriorly has d ecreased in size since spiculated margins extending to the pleural surface anteriorly and along the m ediastinum and measures approximately 2 cm in greatest AP dimension, and prior biopsy lesion measures 3 cm. Spiculated mass shows a similar appearance on axial image #32 in the left upper lobe anteriorl y. The left upper lobe mass posteriorly abutting the proximal descending aorta now measures approxima tely 5.3 cm and on prior exam it measured approximately 3.7 cm in AP dimension by 5.2 cm in cephalad to caudal dimension by 4.3 cm in transverse dimension. Within the right middle lobe there is a spicul ated lesion present which has decreased in volume as compared to prior exam. There is no pleural effu maru or pneumothorax seen. The tracheobronchial tree is patent. Emphysematous changes are again pres ent within the lungs. MEDIASTINUM: The abnormal attenuation within the superior vena cava suspicious for thrombus, low dens e mediastinal adenopathy in the retrocaval tracheal mediastinum, abnormal low attenuation anterior to the superior vena cava as noted on prior exam. AORTA: Abdominal aorta are ectatic at the level of the celiac axis, superior mesenteric artery measu ring as much is 3 cm OTHER: Bilateral adrenal masses are again seen, left adrenal mass now measures 17 mm and measured 12 mm in prior exam. Probable postoperative change to the right kidney again seen, cystic foci present within the liver. IMPRESSION: Interval progression of left upper lobe lung mass, question interval treatment changes. Difficult to exclude tumor thrombus, deep venous thrombosis within the superior vena cava, similar f indings seen on prior exam. Findings suggest metastatic disease.
== END | disposition home or self-care (01) ==
LOC: RADCTMAIN 09:53
PROVIDERS: ATTEND Internal Medicine Hematology & Oncology
DX: R91.8 Other nonspecific abnormal finding of lung field (principal); C34.12 Malignant neoplasm of upper lobe, left bronchus or lung
CPT/HCPCS: 82565; 84520; 71260; 36415; Q9967

== ENCOUNTER 2020-05-20 12:20 | Emergency (ER) | payer MEDICARE ==
[~2020-05-20 12:20] MED LIST changes: -DEXAMETHASONE SOD PHOSPHATE 10 MG/ML 1 ML VIAL IV ONE; +EPINEPHrine 10 ML SYRINGE (0.1 MG/ML) ONE; -HEPARIN SODIUM,PORCINE 5,000 UNIT/ML 1 ML VIAL SQ ONE; -HYDROmorphone 0.5 MG/0.5 ML SYRINGE IVP PRN; -LACTATED RINGERS 1,000 ML IV SCH; -MORPHINE SULFATE 4 MG/ML SYRINGE IV PRN; +NOREPINEPHRINE 1 MG/ML 4 ML VIAL IV ONE; -ONDANSETRON 4 MG/2 ML VIAL IVP ONE; -ONDANSETRON 4 MG/2 ML VIAL IVP PRN; +SODIUM BICARB 8.4% 50 ML SYR (1 MEQ/ML) ONE; -ceFAZolin IN SWFI 2 GM/20 ML SYRINGE IVP ONE
[2020-05-20 12:33] LABS: Glucose,Whole Blood 239 mg/dL (75-99)
[2020-05-20 12:36] LABS: Anisocytosis Marked; Basophils % (A) 0 %; Eosinophils % (A) 0 %; HCT 32.7 % (34.0-46.0); HGB 9.9 gm/dL (11.4-16.0); Hypochromasia Marked; Lymphocytes # (A) 1.3 k/uL (1.0-4.8); Lymphocytes % (A) 17 %; MCH 28.3 pg (25.0-35.0); MCHC 30.3 g/dL (31.0-37.0); MCV 93.4 fL (80.0-100.0); Macrocytosis Moderate; Microcytosis Slight; Monocytes # (A) 0.3 k/uL (0-1.0); Monocytes % (A) 4 %; Neutrophils # (A) 5.5 k/uL (1.3-7.7); Neutrophils % (A) 75 %; Platelet Count 337 k/uL (150-450); WBC 7.4 k/uL (3.8-10.6)
[2020-05-20 12:38] LABS: RDW 25.5 % (11.5-15.5)
--- NOTE | 2020-05-20 12:38 | ED ---
General Adult HPI - General Stated complaint: Cardiac arrest Source: family Limitations: language barrier, altered mental status, physical limitation - History of Present Illness Initial comments: Dictation was produced using [employer] dictation software. please excuse any grammatical, word or spelling errors. This patient was cared for during a federal and state declared state of emergency secondary to Covid 19 Chief Complaint: 64-year-old male presents after cardiac arrest History of Present Illness: 64-year-old female she has past medical history of lung cancer. Patient was in our outpatient infusion center. She had a cisplatin infusion when she was found to be unresponsive in the bathroom. CODE BLUE was called. Patient was resuscitated for approximately 8 minutes. She is given 2 rounds of epi and 2 rounds of sodium bicarbonate with return of spontaneous circulation. There is also concern for ventricular tachycardia and she did receive synchronized cardioversion patient has a history of breast cancer. 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 Patient's medications are reviewed. She has a prescription for apixaban that was started in January of last year. Unable to obtain secondary to mental status PHYSICAL EXAM: General Impression: Intubated, obtunded HEENT: Pupils 4 mm reactive Cardiovascular: Tachycardic Chest: Mild end expiratory wheezing Abdomen: abdomen soft, non-tender, non-distended, no organomegaly Musculoskeletal: Pulses present and equal in all extremities, no peripheral edema, equal bilateral leg hurts at the tibial level ED course: 64-year-old female presents after cardiac arrest. CODE BLUE was read by Dr. Lucia. Plan care bedside ultrasound showed no RV dilatation, there was no pericardial effusion and signs of obvious heart failure. EKG interpretation: Ventricular rate 119, sinus tachycardia,. Interval 120, QRS 94, QTC 501. No TN prolongation, no QTC prolongation, no ST or T-wave changes noted. No old EKG for comparison More history was obtained from and sister. According to patient is been in her usual state of health the last couple days. His reports that she was found unresponsive in the bathroom for maybe 4 minutes according to her before she was discovered. Laboratory evaluation obtained. CBC is unremarkable. CBC appears to be baseline. Coag panel is negative. Metabolic panel shows pH of 7.32, pCO2 of 63 bicarb of 33. She is not hypoxic. Metabolic panel shows potassium 3.0, anion gap of 15 with a bicarb of 33. Glucose 243, lactic acidosis O.2. Urinalysis shows findings concerning for urinary tract infection. Urine drug screen is negative. Serum alcohol is negative. Patient given 1 g ceftriaxone. Post proc edure chest x-ray shows satisfactory position of the left IJ and endotracheal tube Computed tomography scan of the head and C-spine shows new 3.2 cm hemorrhagic metastatic lesion in the left occipital lobe with local mass effect and vasogenic edema. Patient's given [address] angios the chest shows partial occlusive lingular and left lower lobe pulmonary emboli, high-grade malignancy with bilateral nodules or masses and thoracic and adenopathy redemonstrated. There is tumor invasion to the SVC. Patient reevaluated at bedside approximately 2:36 PM in stable medical condition with pressor support, sedation and intubation. Family is agreeable transferred to [facility] given that patient has a new intracranial mass. Case is discussed with Dr. Lopez or [facility] who is willing to accept patients care. Neurosurgery was contacted by [facility] transfer team. - Related Data Home Medications Medication Instructions Recorded Confirmed Budesonide-Formot 160-4.5 Mcg 2 puff INHALATION RT-BID 06/14/16 05/20/20 [Symbicort 160-4.5 Mcg Inhaler] Ergocalciferol [Vitamin D2 100,000 unit PO Q30D 06/14/16 05/20/20 (DRISDOL)] Metoprolol Tartrate [Lopressor] 50 mg PO DAILY 11/24/16 05/20/20 Metoprolol Tartrate [Lopressor] 25 mg PO HS 02/08/20 05/20/20 Montelukast [Singulair] 10 mg PO DAILY 02/08/20 05/20/20 Pantoprazole [Protonix] 40 mg PO DAILY 02/08/20 05/20/20 diazePAM [Valium] 5 mg PO QID PRN 02/08/20 05/20/20 rOPINIRole HCL [Requip] 2 mg PO BID 02/08/20 05/20/20 Furosemide [Lasix] 40 mg PO BID 05/20/20 05/20/20 Ipratropium-Albuterol Nebulize 3 ml INHALATION RT-QID PRN 05/20/20 05/20/20 [Duoneb 0.5 mg-3 mg/3 ml Soln] Pembrolizumab [Keytruda] 200 mg IV Q21D 05/20/20 05/20/20 Potassium Chloride [Klor-Con 20] See Taper PO DIRECTED 05/20/20 05/20/20 Pregabalin [Lyrica] 150 mg PO BID 05/20/20 05/20/20 Previous Rx's Medication Instructions Recorded Apixaban [Eliquis] 5 mg PO BID #70 tab 02/11/20 Allergies Allergy/AdvReac Type Severity Reaction Status Date / Time No Known Allergies Allergy Verified 05/20/20 13:16 Review of Systems ROS Statement: Those systems with pertinent positive or pertinent negative responses have been documented in the HPI. ROS Other: All systems not noted in ROS Statement are negative. Past Medical History Past Medical History: Coronary Artery Disease (CAD), Cancer, COPD, Hyperl ipidemia, Myocardial Infarction (TN), Pneumonia Additional Past Medical History / Comment(s): aneurysm,. breast cancer, Lung cancer, clot in right subclavian Vein Last Myocardial Infarction Date:: 2004 History of Any Multi-Drug Resistant Organisms: None Reported Past Surgical History: Breast Surgery, Heart Catheterization With Stent, Hysterectomy, Orthopedic Surgery Additional Past Surgical History / Comment(s): "bilat mastectomy, surgery rt kidney to remove kidney stone , geovanni shoulder rotator cuff Past Anesthesia/Blood Transfusion Reactions: No Reported Reaction Date of Last Stent Placement:: 2004 Past Psychological History: No Psychological Hx Reported Smoking Status: Former smoker - Past Family History Sister(s) Family Medical History: Cancer Father Family Medical History: Cancer Mother Family Medical History: Cancer General Exam Limitations: language barrier, altered mental status, physical limitation Course Vital Signs 05/20/20 05/20/20 05/20/20 12:29 12:43 12:50 Pulse Rate 117 H 114 H 117 H Respiratory 18 18 18 Rate Blood Pressure 114/84 103/61 113/68 O2 Sat by Pulse 99 99 99 Oximetry 05/20/20 05/20/20 05/20/20 13:00 13:10 13:15 Pulse Rate 117 H 105 H 96 Respiratory 16 16 18 Rate Blood Pressure 85/60 94/57 102/66 O2 Sat by Pulse 99 99 99 Oximetry 05/20/20 05/20/20 05/20/20 13:30 13:45 14:00 Pulse Rate 95 81 Respiratory 18 18 Rate Blood Pressure 101/61 81/59 105/41 O2 Sat by Pulse 97 100 Oximetry Procedures - Central Line Placement Left IJ Consent Obtained: emergent situation Patient Placed on Monitor/Pulse Ox: Yes Prep: mask, gown, gloves Central Line Prep: Chlorhexidine scrub Ultrasound Used for Placement: Yes Central Line Lumen Inserted: triple Bloods Obtained for Lab: No Central Line Position: good blood return, all ports aspirated, flushed, capped, sutured in place with 3-0 nylon Dressing Applied: Tegaderm, sterile gauze/tape Post Procedure X-Ray: tip of catheter in good position Patient Tolerated Procedure: well Complications: none Medical Decision Making - Lab Data Result diagrams: 05/20/20 12:22 05/20/20 12:22 Lab Results 05/20/20 05/20/20 05/20/20 Range/Units 12:17 12:22 12:22 WBC 7.4 (3.8-10.6) k/uL RBC 3.50 L (3.80-5.40) m/uL Hgb 9.9 L (11.4-16.0) gm/dL Hct 32.7 L (34.0-46.0) % MCV 93.4 (80.0-100.0) fL MCH 28.3 (25.0-35.0) pg MCHC 30.3 L (31.0-37.0) g/dL RDW 25.5 H (11.5-15.5) % Plt Count 337 (150-450) k/uL MPV 8.0 Neutrophils % 75 % Lymphocytes % 17 % Monocytes % 4 % Eosinophils % 0 % Basophils % 0 % Neutrophils # 5.5 (1.3-7.7) k/uL Lymphocytes # 1.3 (1.0-4.8) k/uL Monocytes # 0.3 (0-1.0) k/uL Eosinophils # 0.0 (0-0.7) k/uL Basophils # 0.0 (0-0.2) k/uL Hypochromasia Marked Anisocytosis Marked Microcytosis Slight Macrocytosis Moderate PT 11.9 (9.0-12.0) sec INR 1.1 (<1.2) APTT 22.1 (22.0-30.0) sec Sample Site ABG pH (7.35-7.45) ABG pCO2 (35-45) mmHg ABG pO2 (83-108) mmHg ABG HCO3 (21-25) mmol/L ABG Total CO2 (19-24) mmol/L ABG O2 Saturation (94-97) % ABG Base Excess mmol/L Tuan Test FiO2 % Sodium (137-145) mmol/L Potassium (3.5-5.1) mmol/L Chloride (98-107) mmol/L Carbon Dioxide (22-30) mmol/L Anion Gap mmol/L BUN (7-17) mg/dL Creatinine (0.52-1.04) mg/dL Est GFR (CKD-EPI)AfAm (>60 ml/min/1.73 sqM) Est GFR (CKD-EPI)NonAf (>60 ml/min/1.73 sqM) Glucose (74-99) mg/dL POC Glucose (mg/dL) (75-99) mg/dL POC Glu Steward/Stewardess Banquet ID Plasma Lactic Acid Itz (0.7-2.0) mmol/L Calcium (8.4-10.2) mg/dL Ionized Calcium Estella (4.5-5.3) mg/dL Total Bilirubin (0.2-1.3) mg/dL AST (14-36) U/L ALT (4-34) U/L Alkaline Phosphatase (38-126) U/L Total Creatine Kinase (30-135) U/L CK-MB (CK-2) (0.0-2.4) ng/mL CK-MB (CK-2) Rel Index Troponin I (0.000-0.034) ng/mL Total Protein (6.3-8.2) g/dL Albumin (3.5-5.0) g/dL Amylase (30-110) U/L Lipase (23-300) U/L Urine Color Urine Appearance (Clear) Urine pH (5.0-8.0) Ur Specific [place] (1.001-1.035) Urine Protein (Negative) Urine Glucose (UA) (Negative) Urine Ketones (Negative) Urine Blood (Negative) Urine Nitrite (Negative) Urine Bilirubin (Negative) Urine Urobilinogen (<2.0) mg/dL Ur Leukocyte Esterase (Negative) Urine RBC (0-5) /hpf Urine WBC (0-5) /hpf Urine WBC Clumps (None) /hpf Ur Squamous Epith Cells (0-4) /hpf Amorphous Sediment (None) /hpf Urine Bacteria (None) /hpf Urine Mucus (None) /hpf Urine Opiates Screen (NotDetected) Ur Oxycodone Screen (NotDetected) Urine Methadone Screen (NotDetected) Ur Propoxyphene Screen (NotDetected) Ur Barbiturates Screen (NotDetected) U Tricyclic Antidepress (NotDetected) Ur Phencyclidine Scrn (NotDetected) Ur Amphetamines Screen (NotDetected) U Methamphetamines Scrn (NotDetected) U Benzodiazepines Scrn (NotDetected) Urine Cocaine Screen (NotDetected) U Marijuana (THC) Screen (NotDetected) Serum Alcohol mg/dL Blood Type Blood Type Confirm O Positive Blood Type Recheck Bld Type Recheck Status Antibody Screen Spec Expiration Date 05/20/20 05/20/20 05/20/20 Range/Units 12:22 12:22 12:22 WBC (3.8-10.6) k/uL RBC (3.80-5.40) m/uL Hgb (11.4-16.0) gm/dL Hct (34.0-46.0) % MCV (80.0-100.0) fL MCH (25.0-35.0) pg MCHC (31.0-37.0) g/dL RDW (11.5-15.5) % Plt Count (150-450) k/uL MPV Neutrophils % % Lymphocytes % % Monocytes % % Eosinophils % % Basophils % % Neutrophils # (1.3-7.7) k/uL Lymphocytes # (1.0-4.8) k/uL Monocytes # (0-1.0) k/uL Eosinophils # (0-0.7) k/uL Basophils # (0-0.2) k/uL Hypochromasia Anisocytosis Microcytosis Macrocytosis PT (9.0-12.0) sec INR (<1.2) APTT (22.0-30.0) sec Sample Site ABG pH (7.35-7.45) ABG pCO2 (35-45) mmHg ABG pO2 (83-108) mmHg ABG HCO3 (21-25) mmol/L ABG Total CO2 (19-24) mmol/L ABG O2 Saturation (94-97) % ABG Base Excess mmol/L Tuan Test FiO2 % Sodium 140 (137-145) mmol/L Potassium 3.0 L (3.5-5.1) mmol/L Chloride 92 L (98-107) mmol/L Carbon Dioxide 33 H (22-30) mmol/L Anion Gap 15 mmol/L BUN 9 (7-17) mg/dL Creatinine 0.55 (0.52-1.04) mg/dL Est GFR (CKD-EPI)AfAm >90 (>60 ml/min/1.73 sqM) Est GFR (CKD-EPI)NonAf >90 (>60 ml/min/1.73 sqM) Glucose 243 H (74-99) mg/dL POC Glucose (mg/dL) (75-99) mg/dL POC Glu Steward/Stewardess Banquet ID Plasma Lactic Acid Itz 12.2 H* (0.7-2.0) mmol/L Calcium 7.8 L (8.4-10.2) mg/dL Ionized Calcium Estella (4.5-5.3) mg/dL Total Bilirubin 0.6 (0.2-1.3) mg/dL AST 32 (14-36) U/L ALT 30 (4-34) U/L Alkaline Phosphatase 88 (38-126) U/L Total Creatine Kinase 53 (30-135) U/L CK-MB (CK-2) 0.5 (0.0-2.4) ng/mL CK-MB (CK-2) Rel Index 0.9 Troponin I <0.012 (0.000-0.034) ng/mL Total Protein 5.6 L (6.3-8.2) g/dL Albumin 3.0 L (3.5-5.0) g/dL Amylase 48 (30-110) U/L Lipase 58 (23-300) U/L Urine Color Urine Appearance (Clear) Urine pH (5.0-8.0) Ur Specific [place] (1.001-1.035) Urine Protein (Negative) Urine Glucose (UA) (Negative) Urine Ketones (Negative) Urine Blood (Negative) Urine Nitrite (Negative) Urine Bilirubin (Negative) Urine Urobilinogen (<2.0) mg/dL Ur Leukocyte Esterase (Negative) Urine RBC (0-5) /hpf Urine WBC (0-5) /hpf Urine WBC Clumps (None) /hpf Ur Squamous Epith Cells (0-4) /hpf Amorphous Sediment (None) /hpf Urine Bacteria (None) /hpf Urine Mucus (None) /hpf Urine Opiates Screen (NotDetected) Ur Oxycodone Screen (NotDetected) Urine Methadone Screen (NotDetected) Ur Propoxyphene Screen (NotDetected) Ur Barbiturates Screen (NotDetected) U Tricyclic Antidepress (NotDetected) Ur Phencyclidine Scrn (NotDetected) Ur Amphetamines Screen (NotDetected) U Methamphetamines Scrn (NotDetected) U Benzodiazepines Scrn (NotDetected) Urine Cocaine Screen (NotDetected) U Marijuana (THC) Screen (NotDetected) Serum Alcohol <10 mg/dL Blood Type Blood Type Confirm Blood Type Recheck Bld Type Recheck Status Antibody Screen Spec Expiration Date 05/20/20 05/20/20 05/20/20 Range/Units 12:22 12:22 12:38 WBC (3.8-10.6) k/uL RBC (3.80-5.40) m/uL Hgb (11.4-16.0) gm/dL Hct (34.0-46.0) % MCV (80.0-100.0) fL MCH (25.0-35.0) pg MCHC (31.0-37.0) g/dL RDW (11.5-15.5) % Plt Count (150-450) k/uL MPV Neutrophils % % Lymphocytes % % Monocytes % % Eosinophils % % Basophils % % Neutrophils # (1.3-7.7) k/uL Lymphocytes # (1.0-4.8) k/uL Monocytes # (0-1.0) k/uL Eosinophils # (0-0.7) k/uL Basophils # (0-0.2) k/uL Hypochromasia Anisocytosis Microcytosis Macrocytosis PT (9.0-12.0) sec INR (<1.2) APTT (22.0-30.0) sec Sample Site lrad ABG pH 7.32 L (7.35-7.45) ABG pCO2 63 H (35-45) mmHg ABG pO2 >400 H (83-108) mmHg ABG HCO3 33 H (21-25) mmol/L ABG Total CO2 35 H (19-24) mmol/L ABG O2 Saturation 100.0 H (94-97) % ABG Base Excess 6.6 mmol/L Tuan Test Yes FiO2 100 % Sodium (137-145) mmol/L Potassium (3.5-5.1) mmol/L Chloride (98-107) mmol/L Carbon Dioxide (22-30) mmol/L Anion Gap mmol/L BUN (7-17) mg/dL Creatinine (0.52-1.04) mg/dL Est GFR (CKD-EPI)AfAm (>60 ml/min/1.73 sqM) Est GFR (CKD-EPI)NonAf (>60 ml/min/1.73 sqM) Glucose (74-99) mg/dL POC Glucose (mg/dL) 239 H (75-99) mg/dL POC Glu Steward/Stewardess Banquet ID Luana Minda Plasma Lactic Acid Itz (0.7-2.0) mmol/L Calcium (8.4-10.2) mg/dL Ionized Calcium Estella (4.5-5.3) mg/dL Total Bilirubin (0.2-1.3) mg/dL AST (14-36) U/L ALT (4-34) U/L Alkaline Phosphatase (38-126) U/L Total Creatine Kinase (30-135) U/L CK-MB (CK-2) (0.0-2.4) ng/mL CK-MB (CK-2) Rel Index Troponin I (0.000-0.034) ng/mL Total Protein (6.3-8.2) g/dL Albumin (3.5-5.0) g/dL Amylase (30-110) U/L Lipase (23-300) U/L Urine Color Urine Appearance (Clear) Urine pH (5.0-8.0) Ur Specific [place] (1.001-1.035) Urine Protein (Negative) Urine Glucose (UA) (Negative) Urine Ketones (Negative) Urine Blood (Negative) Urine Nitrite (Negative) Urine Bilirubin (Negative) Urine Urobilinogen (<2.0) mg/dL Ur Leukocyte Esterase (Negative) Urine RBC (0-5) /hpf Urine WBC (0-5) /hpf Urine WBC Clumps (None) /hpf Ur Squamous Epith Cells (0-4) /hpf Amorphous Sediment (None) /hpf Urine Bacteria (None) /hpf Urine Mucus (None) /hpf Urine Opiates Screen (NotDetected) Ur Oxycodone Screen (NotDetected) Urine Methadone Screen (NotDetected) Ur Propoxyphene Screen (NotDetected) Ur Barbiturates Screen (NotDetected) U Tricyclic Antidepress (NotDetected) Ur Phencyclidine Scrn (NotDetected) Ur Amphetamines Screen (NotDetected) U Methamphetamines Scrn (NotDetected) U Benzodiazepines Scrn (NotDetected) Urine Cocaine Screen (NotDetected) U Marijuana (THC) Screen (NotDetected) Serum Alcohol mg/dL Blood Type O Positive Blood Type Confirm Blood Type Recheck No Previous Record Bld Type Recheck Status CABO Indicated Antibody Screen NEGATIVE Spec Expiration Date 05/23/2020 - 232105/20/20 05/20/20 Range/Units 12:55 13:11 WBC (3.8-10.6) k/uL RBC (3.80-5.40) m/uL Hgb (11.4-16.0) gm/dL Hct (34.0-46.0) % MCV (80.0-100.0) fL MCH (25.0-35.0) pg MCHC (31.0-37.0) g/dL RDW (11.5-15.5) % Plt Count (150-450) k/uL MPV Neutrophils % % Lymphocytes % % Monocytes % % Eosinophils % % Basophils % % Neutrophils # (1.3-7.7) k/uL Lymphocytes # (1.0-4.8) k/uL Monocytes # (0-1.0) k/uL Eosinophils # (0-0.7) k/uL Basophils # (0-0.2) k/uL Hypochromasia Anisocytosis Microcytosis Macrocytosis PT (9.0-12.0) sec INR (<1.2) APTT (22.0-30.0) sec Sample Site ABG pH (7.35-7.45) ABG pCO2 (35-45) mmHg ABG pO2 (83-108) mmHg ABG HCO3 (21-25) mmol/L ABG Total CO2 (19-24) mmol/L ABG O2 Saturation (94-97) % ABG Base Excess mmol/L Tuan Test FiO2 % Sodium (137-145) mmol/L Potassium (3.5-5.1) mmol/L Chloride (98-107) mmol/L Carbon Dioxide (22-30) mmol/L Anion Gap mmol/L BUN (7-17) mg/dL Creatinine (0.52-1.04) mg/dL Est GFR (CKD-EPI)AfAm (>60 ml/min/1.73 sqM) Est GFR (CKD-EPI)NonAf (>60 ml/min/1.73 sqM) Glucose (74-99) mg/dL POC Glucose (mg/dL) (75-99) mg/dL POC Glu Steward/Stewardess Banquet ID Plasma Lactic Acid Itz (0.7-2.0) mmol/L Calcium (8.4-10.2) mg/dL Ionized Calcium Estella 4.1 L (4.5-5.3) mg/dL Total Bilirubin (0.2-1.3) mg/dL AST (14-36) U/L ALT (4-34) U/L Alkaline Phosphatase (38-126) U/L Total Creatine Kinase (30-135) U/L CK-MB (CK-2) (0.0-2.4) ng/mL CK-MB (CK-2) Rel Index Troponin I (0.000-0.034) ng/mL Total Protein (6.3-8.2) g/dL Albumin (3.5-5.0) g/dL Amylase (30-110) U/L Lipase (23-300) U/L Urine Color Light Yellow Urine Appearance Cloudy H (Clear) Urine pH 6.5 (5.0-8.0) Ur Specific [place] 1.015 (1.001-1.035) Urine Protein 3+ H (Negative) Urine Glucose (UA) Trace H (Negative) Urine Ketones Trace H (Negative) Urine Blood Small H (Negative) Urine Nitrite Negative (Negative) Urine Bilirubin 2+ H (Negative) Urine Urobilinogen 12.0 (<2.0) mg/dL Ur Leukocyte Esterase Negative (Negative) Urine RBC 23 H (0-5) /hpf Urine WBC 96 H (0-5) /hpf Urine WBC Clumps Rare H (None) /hpf Ur Squamous Epith Cells 2 (0-4) /hpf Amorphous Sediment Rare H (None) /hpf Urine Bacteria Occasional H (None) /hpf Urine Mucus Rare H (None) /hpf Urine Opiates Screen Not Detected (NotDetected) Ur Oxycodone Screen Not Detected (NotDetected) Urine Methadone Screen Not Detected (NotDetected) Ur Propoxyphene Screen Not Detected (NotDetected) Ur Barbiturates Screen Not Detected (NotDetected) U Tricyclic Antidepress Not Detected (NotDetected) Ur Phencyclidine Scrn Not Detected (NotDetected) Ur Amphetamines Screen Not Detected (NotDetected) U Methamphetamines Scrn Not Detected (NotDetected) U Benzodiazepines Scrn Not Detected (NotDetected) Urine Cocaine Screen Not Detected (NotDetected) U Marijuana (THC) Screen Not Detected (NotDetected) Serum Alcohol mg/dL Blood Type Blood Type Confirm Blood Type Recheck Bld Type Recheck Status Antibody Screen Spec Expiration Date Critical Care Time Critical Care Time: Yes Total Critical Care Time: 33 Disposition Clinical Impression: Cardiac arrest Disposition: OTHER INSTITUTION NOT DEFINED Condition: Critical Referrals: Evelio Catherine MD [Primary Care Provider] - 1-2 days Time of Disposition: 14:38 - Out of Hospital Transfer - Req. Specs Out of Hospital Transfer - Requested Specifics: Other Emergency Center ([facility])
[2020-05-20 12:47] LABS: African American GFR (CKD) >90 (>60 ml/min/1.73 sqM); Alcohol <10 mg/dL; Alkaline Phosphatase 88 U/L (38-126); Amylase 48 U/L (30-110); Anion Gap 15 mmol/L; Blood Urea Nitrogen 9 mg/dL (7-17); Calcium 7.8 mg/dL (8.4-10.2); Carbon Dioxide 33 mmol/L (22-30); Chloride 92 mmol/L (98-107); Glucose 243 mg/dL (74-99); Lipase 58 U/L (23-300); Non-African American GFR(CKD) >90 (>60 ml/min/1.73 sqM); Sodium 140 mmol/L (137-145); Total Bilirubin 0.6 mg/dL (0.2-1.3); Total Protein 5.6 g/dL (6.3-8.2)
[2020-05-20 12:49] LABS: ABG Base Excess 6.6 mmol/L; ABG HCO3 33 mmol/L (21-25); ABG PCO2 63 mmHg (35-45); ABG PH 7.32 (7.35-7.45); ABG PO2 >400 mmHg (83-108); ABG TCO2 35 mmol/L (19-24); Allen Test Performed? Yes
[2020-05-20 12:53] LABS: AST 32 U/L (14-36)
[2020-05-20 12:54] LABS: ALT 30 U/L (4-34); INR 1.1 (<1.2); Partial Thromboplastin Time 22.1 sec (22.0-30.0); Prothrombin Time 11.9 sec (9.0-12.0)
[2020-05-20] MEDS ORDERED: NOREPINEPHRINE 4 MG in SODIUM CHLORIDE 0.9% 250 ML IV SCH (13:00)
[2020-05-20] MEDS ORDERED: NOREPINEPHRINE 32 MG in SODIUM CHLORIDE 0.9% 218 ML IV SCH (13:15)
[2020-05-20 13:17] LABS: Creatine Kinase MB 0.5 ng/mL (0.0-2.4); Troponin I <0.012 ng/mL (0.000-0.034)
[2020-05-20 13:27] LABS: Creatine Kinase 53 U/L (30-135)
[2020-05-20 13:29] LABS: Amorphous Sediment,Urine Rare /hpf; Appearance,Urine Cloudy (Clear); Bacteria,Urine Occasional /hpf; Bilirubin,Urine 2+ (Negative); Blood,Urine Small (Negative); Color,Urine Light Yellow; Glucose,Urine (UA) Trace (Negative); Ketones,Urine Trace (Negative); Leukocyte Esterase,Urine Negative (Negative); Mucus,Urine Rare /hpf; Nitrite,Urine Negative (Negative); PH, Urine 6.5 (5.0-8.0); Protein,Urine 3+ (Negative); RBC,Urine 23 /hpf (0-5); Specific Gravity,Urine 1.015 (1.001-1.035); Squamous Epithelial Cell,Urine 2 /hpf (0-4); WBC,Urine 96 /hpf (0-5)
[2020-05-20] MEDS ORDERED: cefTRIAXone IN SWFI 1,000 MG/10 ML SYRINGE IVP STA (13:33)
[2020-05-20 13:34] LABS: Amphetamine Screen,Urine Not Detected (NotDetected); Barbiturate Screen,Urine Not Detected (NotDetected); Benzodiazepines Screen,Urine Not Detected (NotDetected); Cocaine Screen,Urine Not Detected (NotDetected); Methadone Screen, Urine Not Detected (NotDetected); Opiate Screen,Urine Not Detected (NotDetected); Oxycodone Screen, Urine Not Detected (NotDetected); Phencyclidine Screen,Urine Not Detected (NotDetected); Tricyclic Antidepressant,Urine Not Detected (NotDetected); Urn Cannabinoid Scrn Not Detected (NotDetected)
[2020-05-20] MEDS ORDERED: DEXAMETHASONE SOD PHOSPHATE 10 MG/ML 1 ML VIAL IV STA (13:34)
[2020-05-20] MEDS ORDERED: POTASSIUM CHLORIDE 20 MEQ in WATER FOR INJECTION 1 100ML.BAG IVPB STA (13:34)
[2020-05-20] MEDS ORDERED: IPRATROPIUM-ALBUTEROL 3 ML NEB INHALATION STA (13:34)
--- NOTE | 2020-05-20 13:56 | XR ---
EXAMINATION TYPE: XR chest 1V portable DATE OF EXAM: 05/20/2020 COMPARISON: Chest x-ray February 11, 2020. CT chest May 11, 2020 HISTORY: Left internal jugular catheter placement. TECHNIQUE: Single frontal view of the chest is obtained. FINDINGS: There is new left internal jugular central venous catheter terminating in SVC. There is new endotracheal tube approximately 4 to 5 cm above nicole. There is new orogastric tube projecting belo w diaphragm. Background Chronic emphysematous change with roughly 6.5 x 5.2 cm left upper lobe lung mass or neopla sm redemonstrated. Mild bibasilar linear scarring and/or atelectasis. No pleural effusion or pneumoth orax seen. Cardiac silhouette size remains mildly enlarged. Osseous structures remain demineralized. Bilateral hilar prominence consistent with underlying pulmonary hypertension redemonstrated. IMPRESSION: 1. New endotracheal and orogastric tubes satisfactory in position. 2. New left internal jugular central venous catheter terminates in SVC without pneumothorax. 3. Cardiomegaly and background moderate emphysematous change with persistent 6.5 cm left upper lung m ass or neoplasm. No suspicious acute pulmonary process.
--- NOTE | 2020-05-20 14:17 | CT ---
EXAMINATION TYPE: CT brain cspine wo con DATE OF EXAM: 05/20/2020 COMPARISON: MRI brain February 26, 2020 HISTORY: Fall on thinners, CARDIAC Arrest, headache and neck pain. CT DLP: 1267.5 mGycm. Automated Exposure Control for Dose Reduction was Utilized. TECHNIQUE: CT scan of the head and cervical spine are performed without contrast. FINDINGS: There is new 2.5 x 2.4 x 3.2 cm hyperdense lesion left occipital lobe with surrounding hypo density. No midline shift. Ventricles and sulci show mild prominence. Areas of low attenuation in the white matter seen better on MRI versus CT. Secretions now fill the nasal vault. Mild/moderate cortic al thickening involving ethmoid sinuses. Globes are intact bilaterally. Cervical spine is visualized in its entirety from C1 through upper thoracic levels and demonstrates s table and straightened alignment without evidence of acute fracture or dislocation. Prevertebral sof t tissue appears within normal limits. The C1-C2 articulation is within normal limits on the coronal images. Vertebral body heights and disc space heights are maintained. Spinal canal is preserved. We ll-defined prominence of the left C4 vertebral foramen unchanged from prior studies. There is partial visualization of endotracheal and orogastric tubes. New scattered suspicious enlarged neck lymph nod es are present bilaterally, for reference is 1.7 x 1.3 cm right submandibular lymph node axial image 49. Partial visualization of left internal jugular central venous catheter. IMPRESSION: 1. There is no acute fracture or dislocation evident in the cervical spine. New thoracic metastatic adenopathy. 2. New 3.2 cm hemorrhagic metastatic lesion left occipital lobe with local mass effect and/or vasogen ic edema.
--- NOTE | 2020-05-20 14:28 | CT ---
EXAMINATION TYPE: CT angio chest DATE OF EXAM: 05/20/2020 2:07 PM COMPARISON: PET/CT February 20, 2020. Chest CT May 11, 2020 HISTORY: Fall on thinners, positive D-dimer, Cardiac arrest CT DLP: 325.9 mGycm Automated exposure control for dose reduction was used. CONTRAST: CTA scan of the thorax is performed without and with IV Contrast, patient injected with 100 ml mL of Isovue 370, pulmonary embolism protocol. . FINDINGS: LUNGS: Background moderate underlying emphysematous change. Roughly 5.0 x 4.3 cm posterior left upper lobe mass or neoplasm axial image 42 not significantly changed from most recent CT. Stable spiculate d 2.1 x 1.1 cm anterior medial left mid lung nodule image 58. Scarlike opacities anteriorly near axia l image 77 unchanged, scarlike opacity in the lingula image 78 also stable from most recent CT. Stabl e spiculated 1.4 x 0.8 cm nodule right mid lung axial image 89. Stable [id number] bibasilar archana ear scarring and/or atelectasis. No pleural effusion or pneumothorax. Satisfactory positioning of end otracheal tube. MEDIASTINUM: There is satisfactory enhancement of the pulmonary artery and its branches, there is lef t lower lobe partially occlusive embolism beginning near axial image 86 extending inferiorly. There i s lingular embolism axial image 90 with segmental extension. There are persistent abnormal thoracic lymph nodes. For reference there is 2.4 x 1.5 cm lymph node along the anterior aspect SVC with suspec jose a invasion. There is left suprahilar adenopathy image 70 redemonstrated and abnormal right hilar ad enopathy same image redemonstrated. Partial occlusive thrombus into the SVC noted for reference coron al image 92. No definitive enhancement of emboli to definitively suggest tumor thrombi. Tiny pericard ial effusion is seen. Heart size stable and upper limits of normal. Orogastric tube coiled in stomach . OTHER: There is 1.2 cm thin-walled cyst anterior left hepatic lobe axial image 128. IMPRESSION: Partial occlusive lingular and left lower lobe pulmonary emboli. High-grade malignancy wi th bilateral nodules and masses and no thoracic adenopathy redemonstrated. Tumor invasion into the SV C noted. Case discussed with ordering ER physician via telephone at time of dictation.
--- NOTE | 2020-05-20 14:58 | XR ---
EXAMINATION TYPE: XR chest 1V portable DATE OF EXAM: 05/20/2020 COMPARISON: CT chest May 11, 2020 HISTORY: Cardiac arrest. TECHNIQUE: Single frontal view of the chest is obtained. FINDINGS: New endotracheal tube terminates superior aortic knob level, approximately 4 cm above july a. 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 Bilateral mild to moderate pulmonary fibrotic changes redemonstrated. No new focal infiltrate or pneu mothorax. Cardiac silhouette size stable and mildly enlarged. Osseous structures remain demineralized . Impression: New Endotracheal tube satisfactory in position. Other findings are not significant change from most recent CT.
[2020-05-20 15:26] VITALS: BP 102/74; RESP 20
[2020-05-20 15:35] VITALS: PULSE 78
== END 2020-05-20 15:53 | disposition short-term general hospital (02) ==
LOC: EC 12:20
DX: I46.9 Cardiac arrest, cause unspecified (principal); I25.10 Atherosclerotic heart disease of native coronary artery without angina pectoris; J44.9 Chronic obstructive pulmonary disease, unspecified; E78.5 Hyperlipidemia, unspecified; I25.2 Old myocardial infarction; Z79.51 Long term (current) use of inhaled steroids; Z79.899 Other long term (current) drug therapy; Z87.891 Personal history of nicotine dependence; Z95.5 Presence of coronary angioplasty implant and graft; Z85.118 Personal history of other malignant neoplasm of bronchus and lung; Z85.3 Personal history of malignant neoplasm of breast; Z86.718 Personal history of other venous thrombosis and embolism
CPT/HCPCS: 99291 ×2; 36556 ×2; 96365 ×2; 96366 ×2; 96368 ×2; 96375 ×3; 36415; 94640; 36600; 94002; 93005; 86900; 86901; 80053; 82330; 82150; 82550; 82553; 82805; 83605; 83690; 84484; 85025; 85610; 85730; 86850; 81001; 80306; 87635; 71045; 72125; 70450; 71275; G0480; J1100; J3480; J0171; J0696; J2704; Q9967; 80320